=== PATIENT | female | born 1980 | race Caucasian/White ===

== ENCOUNTER → 2023-05-20 | Outpatient (CLI) | payer MEDICAID, SELFPAY ==
--- NOTE | 2023-05-20 10:10 | LES_PTH ---
PATIENT: ADIN NGUYEN LOC: [facility] U#:[id number] AGE/SX: 42/F ROOM: RE05/20/[address]: Dr. Kosta Domínguez MD : 1980 BED: DIS: 05/20/2023 SPEC #: [id number] RECD: 05/20/23 15:24 STATUS: TRISH REGaby #: [id number] OREN: 05/20/23 10:[address]: Kosta Domínguez DEPT: SURGICAL PATHOLOGY RECD BY: Joleen Guillen ENTERED: 05/21/23 08:29 SP TYPE: Lesion OTHR DR: Dr. Thanh Vázquez, [facility] Tissues: Skin of lip, NOS Procedures: Surgery Specimen Level IV Comments: @ Specimen number changed from [id number] to [id number] @ on 05/21/23 at 1032 by BLANCHE. @ Specimen number changed from [id number] to [id number] @ on 05/21/23 at 1032 by BLANCHE. HEADER OPERATION: Excision right lower lip lesion PRE-OP DIAGNOSIS: Benign neoplasm of lip TISSUE SUBMITTED: Lower lip lesion MICROSCOPIC DIAGNOSIS Lesion of lower lip, biopsy: Mucous cyst with associated reactive change Minor salivary gland ductal ectasia. AM:kim 05/22/2023 MICROSCOPIC DESCRIPTION Slides are reviewed. GROSS DESCRIPTION Received is one container labeled with the patient's name and not further designated. The specimen consists of two pieces of duran mucosal tissue measuring 0.5 x 0.5 x 0.3 cm and 0.3 x 0.2 x 0.1 cm. The entire specimen is submitted in one cassette. / SJ:rg 05/21/2023 TC:5 CPT: 80372
== END | disposition home or self-care (01) ==
LOC: LABSPEC 15:41
PROVIDERS: PCP Student in an Organized Health Care Education/Training Program; Referring Provider Otolaryngology; Visit Provider Otolaryngology
DX: D10.0 Benign neoplasm of lip (principal)
CPT/HCPCS: 88305

== ENCOUNTER 2023-09-10 19:25 | Emergency (ER) | payer MEDICAID, SELFPAY ==
[2023-09-10 19:26] VITALS: BP 129/96; PULSE 104; RESP 18; TEMP 36.4; O2SAT 98; BMI 33.6
--- NOTE | 2023-09-10 19:54 | EDS_ITS ---
HPI History of Present Illness Chief Complaint: Abd Pain [facility] Medical History (Updated 09/10/23 @ 19:35 by Amber Be) Kidney stone Home Medications bupropion HCl 150 mg tablet,12 hr sustained-release 150 mg PO DAILY 01/15/17 [History Last Taken Unknown] fluoxetine 40 mg capsule 40 mg PO BID 01/15/17 [History Last Taken Unknown] hydrochlorothiazide 12.5 mg capsule 12.5 mg PO DAILY 01/15/17 [History Last Taken Unknown] loratadine 10 mg tablet 10 mg PO DAILY 01/15/17 [History Last Taken Unknown] losartan 25 mg tablet 25 mg PO DAILY 01/15/17 [History Last Taken Unknown] meloxicam 15 mg tablet 15 mg PO DAILY 01/15/17 [History Last Taken Unknown] potassium citrate 10 mEq (1,080 mg) tablet,extended release 10 meq PO TID 01/15/17 [History Last Taken Unknown] Allergy/AdvReac Type Severity Reaction Status Date / Time No Known Allergies Allergy Verified 09/10/23 19:28 Social History Smoking Status: Never smoker EXAM Physical Exam Const Vital Signs: 09/10/23 19:26 Temperature 97.6 F L Temperature Source Temporal Pulse Rate 104 H Respiratory Rate 18 Blood Pressure 129/96 H Blood Pressure Mean 107 Pulse Ox 98 Oxygen Delivery Method Room Air MDM MDM MDM Narrative Medical decision making narrative: HISTORY OF PRESENT ILLNESS: 43-year-old female presents with lower quad abdominal pain that started last night. Goes to the groin. Notes started last night. Notes history of kidney stones. No history of UTIs. Does not feel similar to either. No trauma. No vaginal bleeding. No urinary complaints. No change in bowel habits REVIEW OF SYSTEMS: Pertinent positives: Abdominal pain Pertinent negatives: Vomiting, fever, chest pain, shortness of breath, frequency, urgency, dysuria, hematuria, vaginal bleeding, discharge PHYSICAL EXAM: Nursing triage notes reviewed, Vital signs reviewed Constitutional: please see mdm HENT: MMM Eyes: Pupils equal round and reactive to light, Extraocular muscles intact Neck: No stridor, no JVD, full neck ROM Lungs: Clear to auscultation, No wheezing or rales. No increased work of breat moises, no conversational dyspnea, no accessory muscle use, no nasal flaring. No respiratory distress noted Heart: Regular rate and rhythm, No murmurs, No rubs and No gallops, 2+ distal pulses (radial, femoral, posterior tibial) in all extremities Abdomen: Soft, mild left lower quadrant TTP but no rigidity, rebound or guarding, no obvious peritoneal signs, no palpable pulsatile abdominal masses, n o auscultated abdominal bruit : No CVAT Extremities: No edema Neuro: No focal neurological deficits, cranial nerves II through XII intact, 5/5 strength in all extremities. Intact sensation to light touch in all extremities, 2+ reflexes bilateral patella tendons. Normal gait. No ataxia. Skin: No rash or lesions noted MEDICAL DECISION MAKING: Chief Complaint: Lower quad abdominal pain External records reviewed: No recent advanced imaging of the abdomen or pelvis Factors affecting care: UTI, kidney stone Social determinants of health: none History obtained from others: none Consults: none [facility] Narrative: Patient was hemodynamically stable, afebrile, nontoxic-appearing. Exam with some mild left lower quadrant tenderness but no peritoneal signs. I considered the following differential diagnosis: AAA, small bowel obstruction, abdominal perforation, appendicitis, pancreatitis, hepatobiliary pathology (acute cholecystitis), mesenteric ischemia, pathology (ie nephrolithiasis, pyelonephritis). Give the patient IV Toradol and IV fluids for resuscitation I obtained a broad lab and imaging workup to further elucidate etiology patient complaint ALL IMAGES (IF OBTAINED) HAVE BEEN PERSONALLY REVIEWED AND INTERPRETED BY MYSELF. CBC with marked leukocytosis suggestive of systemic inflammation, mild anemia no thrombocytopenia BMP without evidence of significant electrolyte abnormalities, no anion gap, no acute kidney injury. Urinalysis shows no evidence of urinary inflammation suggestive of UTI Urine test is negative CT scan of the abdomen pelvis Shows no evidence of acute appendicitis, CT did show bilateral fluid density masses within the pelvis. This was further evaluated with a pelvic ultrasound. Pelvic ultrasound showed evidence of a complex cystic pelvic mass. While this is concerning it is not acutely life-threatening. Patient will need close outpatient RESPIRATORY COORDINATOR follow-up. This was arranged. Strict return precautions were discussed. The patient and/or family, caregivers express understanding. The patient and/or family, caregivers agrees with the plan. Shared decision making: I will have a discussion with the patient and or visitors regarding risk/benefits of further testing or admission. They will be made aware of of the risk/benefits inherent in this decision they will be given the opportunity to voice understanding. Total critical care time today provided was at least 0 [] minutes. This excludes separately billable procedures. Critical care time (if documented) is secondary to the patient having high probability of clinically significant/life threatening deterioration in the patient's condition which required my urgent intervention. Impression: 1. Abdominal pain 2. Leukocytosis 3. Pelvic mass Dispo: Discharge home This note was generated with [employer] dictation software. It may contain incorrect words, spelling, and punctuation that were not noted in review of the chart prior to signing. Lab Data Labs: Laboratory Results - last 24 hr 09/10/23 09/10/23 20:21 20:35 WBC 19.3 H RBC 4.58 Hgb 11.6 L Hct 37.7 MCV 82.3 MCH 25.3 L MCHC 30.8 L RDW Std Deviation 41.1 RDW Coeff of Pete 13.9 Plt Count 441 MPV 9.0 Immature Gran % (Auto) 0.500 Neut % (Auto) 80.7 H Lymph % (Auto) 9.3 L [place] % (Auto) 6.0 Eos % (Auto) 3.2 Baso % (Auto) 0.3 Absolute Neuts (auto) 15.6 H Absolute Lymphs (auto) 1.80 Nucleated RBC % 0 Sodium 138 Potassium 3.7 Chloride 105 Carbon Dioxide 25.0 Anion Gap 8 BUN 17 Creatinine 0.97 Estim Creat Clear Calc 76.46 Est GFR (MDRD) Af Amer 82 Est GFR (MDRD) Non-Af 68 BUN/Creatinine Ratio 17.6 Glucose 107 H Calcium 9.2 Urine Color Yellow Urine Clarity Clear Urine pH 6.5 Ur Specific [place] 1.015 Urine Protein Negative Urine Glucose (UA) Normal Urine Ketones Negative Urine Occult Blood 25 H Urine Nitrite Negative Urine Bilirubin Negative Urine Urobilinogen Normal Ur Leukocyte Esterase 100 H Urine RBC 0-5 SEEN Urine WBC 5-10 SEEN Ur Squamous Epith Cells 0-5 SEEN Urine Bacteria 1+ Urine Mucus 0 SEEN Urine Test Negative Radiography Diagnostic Testing: Clinical Impression(s) from Imaging Studies Abdomen/Pelvis CT 09/10/23 20:42 IMPRESSION: 1. Bilateral fluid density masses within the pelvis which may represent bilateral ovarian cysts. No other acute abnormalities are identified. 2. Cortical scarring in both kidneys. There is no ureteral stone or obstruction. Electronically Signed: Chirag Nolan MD at 21:05 EST , Transvaginal US 09/10/23 21:12 IMPRESSION: Multiple masses within the left ovary including a complex cyst, a solid mass and a cystic mass with an echogenic nodule. There is a septated cyst in the right ovary. There is no evidence of torsion. If indicated further evaluation with MRI may be beneficial. Electronically Signed: Chirag Nolan MD at 22:54 EST , Discharge Plan Triage Chief Complaint: Abd Pain ED Provider: Destin Serna Dx/Rx/DC Orders Prescriptions: No Action fluoxetine 40 MG capsule 40 mg PO BID Patient Comments: TAKE 1 CAPSULE TWICE DAILY bupropion HCl 150 MG tablet sustained-release 12 hr 150 mg PO DAILY meloxicam 15 MG tablet 15 mg PO DAILY Patient Comments: potassium citrate 10 MEQ tablet extended release 10 meq PO TID Patient Comments: TAKE 1 TABLET BY MOUTH THREE TIMES DAILY losartan 25 MG tablet 25 mg PO DAILY Patient Comments: Take 1 tablet by mouth once daily. hydrochlorothiazide 12.5 MG capsule 12.5 mg PO DAILY loratadine 10 MG tablet 10 mg PO DAILY Patient Comments: Primary Care Provider: Thanh Vázquez Referrals: Thanh Vázquez DO [Primary Care Provider] -
--- OUTSIDE RECORDS SUMMARY | 2023-09-10 20:03 | XMS RPT_ITS | CCD ---
Author Name Unknown Address [address] [place] [address] Organization [facility] Care Team Providers Care Cigarette Making Examiner Name Role Phone Thanh Corrales DO Primary Care Provider [phone] Thanh Corrales DO Unavailable [phone] THANH CORRALES Primary Care Unavailable SHARMIN BAUMAN Referring Unavailable THANH CORRALES Primary Care Unavailable SHARMIN BAUMAN Referring Unavailable THANH CORRALES Primary Care Unavailable SHARMIN BAUMAN Attending Unavailable THANH CORRALES Primary Care Unavailable THANH CORRALES Primary Care Unavailable YOHANA GALARZA Attending Unavailable THANH CORRALES Primary Care Unavailable Medications Current Medications Medication Drug Class(es) Dates Sig (Normalized) Sig (Original) nitrofurantoin, macrocrystals 25 mg / nitrofurantoin, monohydrate 75 mg oral capsule (2 sources) Nitrofuran Antibacterial Start: 05-29-2023 End: 06-03-2023 take 1 capsule by mouth twice daily nitrofurantoin monohydrate and macrocrystal (MACROBID) 100 mg capsule Indications: Recurrent UTI (urinary tract infection) Take 1 capsule by mouth two times a day for 5 days. 10 capsule 0 05/29/2023 06/03/2023 Active Completed/Discontinued Medications Medication Drug Class(es) Dates Sig (Normalized) Sig (Original) 24 hr buPROPion hydrochloride 300 mg extended release oral tablet (20 sources) Aminoketone Start: 03-07-2021 End: 10-16-2022 take 1 tablet by mouth once daily buPROPion XL (WELLBUTRIN XL) 300 mg 24 hr tablet Indications: Mood disorder (HCC) TAKE 1 TABLET BY MOUTH ONCE DAILY 90 tablet 11 07/18/2022 Active Problems Active Problems Problem Classification Problem Date Documented Da te Episodic/Chronic Diseases of mouth; excluding dental (2 sources) Mucocele of mouth; Translations: [Diseases of lips] 02-21-2023 Episodic Menopausal disorders (20 sources) Menopause finding; Translations: [Menopausal and female climacteric states] Onset: 01-08-2019 01-08-2019 Chronic Menstrual disorders (1 source) Menorrhagia; Translations: [Excessive and frequent menstruation with regular cycle] Chronic Mood disorders (20 sources) Mood disorder; Translations: [Unspecified mood [affective] disorder] Onset: 01-11-2014 Chronic Nutritional deficiencies (2 sources) Vitamin D deficiency; Translations: [Vitamin D deficiency, unspecified] Chronic Other and unspecified benign neoplasm (1 source) Dysplastic nevus of skin; Translations: [Melanocytic nevi of scalp and neck] Episodic Other and unspecified benign neoplasm (1 source) Melanocytic nevus of trunk; Translations: [Melanocytic nevi of trunk] Episodic Other inflammatory condition of skin (20 sources) Psoriasis; Translations: [Psoriasis, unspecified] Onset: 01-08-2019 01-08-2019 Chronic Other lower respiratory disease (1 source) Dyspnea; Translations: [Shortness of breath] Episodic Other screening for suspected conditions (not mental disorders or infectious disease) (2 sources) Patient encounter status; Translations: [Encounter for screening mammogram for malignant neoplasm of breast] Episodic Other skin disorders (1 source) Abnormal hair finding; Translations: [Other hair color and hair shaft abnormalities] Episodic Past or Other Problems Problem Classification Problem Date Documented Da te Episodic/Chronic Abdominal pain (2 sources) Left flank pain; Translations: [Unspecified abdominal pain] Onset: 03-12-2023 03-12-2023 Episodic Calculus of urinary tract (20 sources) Kidney stone; Translations: [Calculus of kidney] Onset: 04-22-2016 04-22-2016 Episodic Cardiac dysrhythmias (2 sources) Palpitations; Translations: [Palpitations] Onset: 10-08-2022 Episodic Deficiency and other anemia (20 sources) Iron deficiency anemia; Translations: [Iron deficiency anemia, unspecified] Onset: 01-11-2014 01-11-2014 Episodic Genitourinary symptoms and ill-defined conditions (2 sources) Increased frequency of urination; Translations: [Frequency of micturition] Onset: 03-12-2023 3 Episodic Malaise and fatigue (20 sources) Fatigue; Translations: [Other fatigue] Onset: 01-11-2014 01-11-2014 Episodic Nonspecific chest pain (2 sources) Chest discomfort; Translations: [Other chest pain] Onset: 10-08-2022 Episodic Other connective tissue disease (20 sources) Pain in right hand; Translations: [Pain in right hand] Onset: 01-08-2019 01-08-2019 Episodic Other lower respiratory disease (1 source) Shortness of breath; Translations: [Shortness of breath] Onset: 10-08-2022 Episodic Residual codes; unclassified (20 sources) Bilateral lower limb edema; Translations: [Localized edema] Onset: 02-27-2015 02-27-2015 Episodic Spondylosis; intervertebral disc disorders; other back problems (20 sources) Chronic low back pain; Translations: [Chronic bilateral low back pain without sciatica] Onset: 01-11-2014 Episodic Urinary tract infections (20 sources) Urinary tract infectious disease; Translations: [Urinary tract infection, site not specified] Onset: 03-18-2016 03-18-2016 Episodic Results Test Name Value Interpretation Reference Range Facil ity Vital Signs Date Time Vital Sign Value Performing Clinician Meraryi rosita 02-21-2023 15:05-0400 Body temperature 97.81 [degF] Reid Powell APRN.CNP Work Phone: [facility] 02-21-2023 15:05-0400 Body weight 83.01 kg Reid Powell APRN.CNP Work Phone: [facility] 02-21-2023 15:05-0400 Diastolic blood pressure 72 mm[Hg] Reid Powell APRN.CNP Work Phone: [facility] 02-21-2023 15:05-0400 Heart rate 88 /min Reid Powell APRN.CNP Work Phone: [facility] 02-21-2023 15:05-0400 Respiratory rate 16 /min Reid Powell APRN.CNP Work Phone: [facility] 02-21-2023 15:05-0400 SaO2% (BldA) [Mass fraction] 96 % Reid Andre LAMINATION BUILDER.PLATER HELPER Work Phone: [facility] 02-21-2023 15:05-0400 Systolic blood pressure 122 mm[Hg] Reid Powell LAMINATION BUILDER.PLATER HELPER Work Phone: [facility] 10-03-2022 14:27-0500 Body weight 82.64 kg Sharmin Bauman LAMINATION BUILDER.PLATER HELPER Work Phone: [facility] 10-03-2022 14:27-0500 Diastolic blood pressure 86 mm[Hg] Sharmin Bauman LAMINATION BUILDER.PLATER HELPER Work Phone: [facility] 10-03-2022 14:27-0500 Heart rate 92 /min Sharmin Bauman LAMINATION BUILDER.PLATER HELPER Work Phone: [facility] 10-03-2022 14:27-0500 Respiratory rate 16 /min Sharmin Bauman LAMINATION BUILDER.PLATER HELPER Work Phone: [facility] 10-03-2022 14:27-0500 SaO2% (BldA) [Mass fraction] 96 % Sharmin Bauman LAMINATION BUILDER.PLATER HELPER Work Phone: [facility] 10-03-2022 14:27-0500 Systolic blood pressure 122 mm[Hg] Sharmin Bauman LAMINATION BUILDER.PLATER HELPER Work Phone: [facility] 08-06-2022 14:31-0500 Body temperature 98.6 [degF] Thanh Corrales DO Work Phone: [facility] 08-06-2022 14:31-0500 Body weight 79.83 kg Thanh Corrales DO Work Phone: [facility] 08-06-2022 14:31-0500 Diastolic blood pressure 60 mm[Hg] Thanh Corrales DO Work Phone: [facility] 08-06-2022 14:31-0500 Heart rate 76 /min Thanh Corrales DO Work Phone: [facility] 08-06-2022 14:31-0500 Respiratory rate 16 /min Thanh Corrales DO Work Phone: [facility] 08-06-2022 14:31-0500 Systolic blood pressure 110 mm[Hg] Thanh Corrales DO Work Phone: [facility] 06-19-2022 13:26-0500 Body weight 82.37 kg Sharmin Seatiesha LAMINATION BUILDER.PLATER HELPER Work Phone: [facility] 06-19-2022 13:26-0500 Diastolic blood pressure 76 mm[Hg] Sharmin Zurtiesha LAMINATION BUILDER.PLATER HELPER Work Phone: [facility] 06-19-2022 13:26-0500 Heart rate 64 /min Sharmin Zurawick LAMINATION BUILDER.PLATER HELPER Work Phone: [facility] 06-19-2022 13:26-0500 Respiratory rate 18 /min Sharmin Seatiesha LAMINATION BUILDER.PLATER HELPER Work Phone: [facility] 06-19-2022 13:26-0500 Systolic blood pressure 120 mm[Hg] Sharmin Zurawick LAMINATION BUILDER.PLATER HELPER Work Phone: [facility] Encounters Encounter Date Encounter Type Care Provider Facility Start: 09-03-2023 ambulatory Thanh villar DO Work Phone: [facility] Start: 07-14-2023 Refill Sharmin Bauman LAMINATION BUILDER.PLATER HELPER Work Phone: [facility] Procedures Date Procedure Procedure Detail Performing Clinician Start: 03-12-2023 Urnls dip stick/tabl et rgnt auto w/o microscopy Yohana Galarza LAMINATION BUILDER.PLATER HELPER Work Phone: Plan of Treatment Date Care Activity Detail Author Start: 12-11-2023 Urine microalbumin profile [facility] Start: 10-04-2023 COVID-19 VACCINE (4 - Booster for Pfizer series) COVID-19 VACCINE (4 - Booster for Pfizer series) [facility] Immunizations Immunization Date Immunization Notes Care Provider Andrey [place] 07-10-2018 influenza virus vaccine, unspecified formulation Figueroa Weber MD Work Phone: [facility] 12-10-2013 tetanus toxoid, redu enrique diphtheria toxoid, and acellular pertussis vaccine, adsorbed Yohana Galarza LAMINATION BUILDER.PLATER HELPER Work Phone: [facility] Work Phone: Payers Date Payer Category Payer Medicaid [id number] 2013 Medicaid [employer] [id number] 2013-Present [phone] [address] [place] [address] Medicaid [id number] 2013 Medicaid [id number] Social History Date Type Detail Facility Tobacco smoking stat [facility] Never smoked tobacco [facility] Start: 05-21-2021 End: 05-29-2023 Alcohol intake Current drinker of alcohol (finding) [facility] Start: 04-02-2016 History SDOH Alcohol Comment rarely [facility] Start: 1980 Sex Assigned At Not on file [facility] Start: 06-09-2022 End: 06-19-2022 Exposure to SARS-CoV-2 (event) Not sure [facility] Start: 1980 Sex Assigned At Female [facility] Start: 02-14-2023 End: 02-21-2023 History of Social function [facility] Start: 02-14-2023 End: 02-21-2023 Tobacco use panel [facility] Adult Depression Screening Assessment 0 [facility] Start: 10-07-2022 Gender identity Identifies as female gender (finding) [facility] Start: 10-07-2022 Sexual orientation Heterosexual (deepthi queen) [facility] Medical Equipment Procedure Code Equipment Code Equipment Origin al Text Equipment Identifier Dates Stent Inlay Opti ma 7fr Taper [place] Green Polymer Phreecoat 24cm [facility] - [id number] Start: 04-11-2016 Clinical Notes 02-08-2022 to 09-03-2023 Telephone Encounter - Darlyn Whitney LPN - 07/15/2023 11:08 AM ESTTelephone Encounter - Nighat Hernandez LPN - 06/10/2023 12:24 PM Yohana Benz LAMINATION BUILDER.PLATER HELPER - 03/12/2023 7:16 PM EDT Note Date & Type Note Facility 09-03-2023 Note Patient Outreach (IN [facility]) ALEX OBREGON ([id number]) 1980 F Date Time Provider Department 09/03/23 THANH CORRALES During your visit today, we recorded the following information about you: Allergies As of Date: 09/03/2023 (No Known Allergies) Date Reviewed: 05/29/2023 Reviewed by: Inés Ashraf LPN - Fully Assessed Visit Diagnosis:Encounter for screening mammogram for breast cancer [Z12.31] Order(s):[facility] SCREENING [[id number]] Order #: [id number] FUTURE Prescriptions as of 09/08/2023 - Cholecalciferol, Vitamin D3, 125 mcg (5,000 unit) cap take 1 capsule by mouth once daily. - FLUoxetine (PROZAC) 40 mg capsule Take 1 capsule by mouth twice daily. - spironolactone (ALDACTONE) 50 mg tablet Take 1 tablet by mouth once daily. - busPIRone (BUSPAR) 5 mg tablet Take 1 tablet by mouth two times a day as needed (anxiety, picking disorder). - meloxicam (MOBIC) 15 mg tablet Take 1 tablet by mouth once daily. With food. - loratadine (CLARITIN) 10 mg tablet take 1 tablet by mouth once daily. - buPROPion XL (WELLBUTRIN XL) 300 mg 24 hr tablet TAKE 1 TABLET BY MOUTH ONCE DAILY - furosemide (LASIX) 20 mg tablet Take 1 tablet by mouth once daily. As needed for leg swelling - fluticasone (FLONASE) 50 mcg/actuation nasal spray Use 2 Sprays in each nostril once daily. Rinse mouth after use. - ferrous sulfate 325 mg (65 mg iron) tablet Take 1 tablet by mouth twice daily with meals. - COMPRESSION HOSIERY KNEE LENGTH, AD, 18-30 MMHG as needed (leg swelling). Dx: varicose veins with edema - omega-3 acid ethyl esters (LOVAZA) 1 gram capsule TAKE 4 CAPSULES EVERY DAY Facility-Administered Medications as of 09/08/2023 - perflutren lipid microspheres 1.3 mL in NaCl (PF) 0.9% 10 mL injection (DEFINITY) - sodium chloride 0.9 % (flush) 10 mL (BD POSIFLUSH) Problem List As Of Date 09/03/2023 Noted Resolved Iron deficiency anemia [D50.9] 01/11/2014 Fatigue [R53.83] 01/11/2014 Chronic low back pain [M54.50, G89.29] 01/11/2014 Mood disorder (HCC) [F39] 01/11/2014 Bilateral edema of lower extremity [R60.0] 02/27/2015 Recurrent major depression in partial remission*02/27/2015 Urinary tract infection [N39.0] 03/18/2016 Nephrolithiasis [N20.0] 04/22/2016 Chronic midline low back pain without sciatica *09/17/2017 Routine physical examination [Z00.00] 01/08/2019 Perimenopausal symptoms [N95.1] 01/08/2019 Right hand pain [M79.641] 01/08/2019 Psoriasis [L40.9] 01/08/2019 Encounter Status:Closed by ASHLEY ORTEGA on 09/08/23 [facility] 07-15-2023 Miscellaneous Notes Patient has been identified by name and date of : Yes, Patient phones for refill(s): Requested Prescriptions Pending Prescriptions Disp Refills Cholecalciferol, Vitamin D3, 125 mcg (5,000 unit) cap [Pharmacy Med Name: cholecalciferol (vitamin D3) 125 mcg (5,000 unit) capsule] 90 capsule 3 Sig: take 1 capsule by mouth once daily. FLUoxetine (PROZAC) 40 mg capsule [Pharmacy Med Name: fluoxetine 40 mg capsule] 180 capsule 3 Sig: Take 1 capsule by mouth twice daily. Date of last office visit in primary care: 03/12/2023 Date of next office visit in primary care: Visit date not found Please advise. Thank you. Darlyn Whitney LPN. documented in this encounter [facility] 06-10-2023 Miscellaneous Notes Patient has been identified by name and date of : Patient phones for refill(s): Requested Prescriptions Pending Prescriptions Disp Refills meloxicam (MOBIC) 15 mg tablet [Pharmacy Med Name: meloxicam 15 mg tablet] 90 tablet 3 Sig: Take 1 tablet by mouth once daily. With food. loratadine (CLARITIN) 10 mg tablet [Pharmacy Med Name: loratadine 10 mg tablet] 90 tablet 3 Sig: take 1 tablet by mouth once daily. Date of last office visit in primary care: 03/12/2023 Date of next office visit in primary care: Visit date not found Last 2 Encounter Wt Readings: Date: Wt: 05/29/2023 84.3 kg (185 lb 12.8 oz) 02/21/2023 83 kg (183 lb) Previous labs/tests for medication: Not applicable Please advise. Thank you. Nighat Hernandez LPN. documented in this encounter [facility] 05-31-2023 Miscellaneous Notes Patient notified and verbalized understanding of instructions given.Inés Ashraf LPN Urine culture did not show a clear infection. Finish antibiotic if helping and schedule follow up with PCP, urology, or SHIFT MECHANIC for blood in the urine. documented in this encounter [facility] 05-29-2023 Note HNO ID: [id number] Author: Callie Spann APRN.PLATER HELPER Service: ? Author Type: Nurse Practitioner Type: Progress Notes Filed: 05/29/2023 7:16 PM Note Text: CC: Patient presents with: Fever: Fever and chills x 2 days-these are her usual symptoms for UTI's HPI Alex Obregon is a 42 year old female who presents with complaint of possible UTI. These symptoms have been present for 2 days. Associated symptoms: fever and chills Denies: backpain, hematuria, abdominal pain, flank pain, and vaginal redness Treatments: nothing The ROS was otherwise negative. PMH, Medications, labs, allergies, and recent past visits with PCP were reviewed and updated as able. PHYSICAL EXAM: BP 148/88 Pulse 92 Temp 37.8 ?C (100 ?F) (Tympanic) Resp 16 Wt 84.3 kg (185 lb 12.8 oz) LMP 04/09/2021 (Approximate) SpO2 98% BMI 33.98 kg/m? General: Well appearing and alert CV: Regular rate and rhythm without obvious murmur Lungs: clear to auscultation bilaterally Back: straight and symmetric Abdomen: soft, nontender, nondistended PAST MEDICAL HISTORY Diagnosis Date ADD (attention deficit disorder) diagnosed as child Elevated LDL cholesterol level 01/2014 Esophageal atresia congenital, fixed at Iron deficiency anemia after heavy menses Mood disorder (HCC) Nephrolithiasis Preeclampsia 1st , not with 2nd Umbilical hernia 2012 surgical fixed Vitamin D deficiency 01/2014 PAST SURGICAL HISTORY Procedure Laterality Date APPENDECTOMY 1982 G - TUBE, LOW PROFILE 1982 due to esophageal atresia REPAIR UMBILICAL HERNIA 2012 SCOPE ESPHGL ATRESIA RPR WDIV FISTULA 1982 TUBAL LIGATION, ALLERGIES Patient has no known allergies. MEDICATIONS busPIRone (BUSPAR) 5 mg tabletTake 1 tablet by mouth twice daily as needed (anxiety, picking disorder).Disp: 60 tabletRfl: 3 spironolactone (ALDACTONE) 50 mg tabletTake 1 tablet by mouth once daily.Disp: 30 tabletRfl: 3 buPROPion XL (WELLBUTRIN XL) 300 mg 24 hr tabletTAKE 1 TABLET BY MOUTH ONCE DAILYDisp: 90 tabletRfl: 11 meloxicam (MOBIC) 15 mg tabletTake 1 tablet by mouth once daily. With food.Disp: 90 tabletRfl: 3 furosemide (LASIX) 20 mg tabletTake 1 tablet by mouth once daily. As needed for leg swellingDisp: 30 tabletRfl: 5 FLUoxetine (PROZAC) 40 mg capsuleTake 1 capsule by mouth twice daily.Disp: 180 capsuleRfl: 3 Cholecalciferol, Vitamin D3, 125 mcg (5,000 unit) capTake 1 capsule by mouth once daily.Disp: 90 capsuleRfl: 3 fluticasone (FLONASE) 50 mcg/actuation nasal sprayUse 2 Sprays in each nostril once daily. Rinse mouth after use.Disp: 3 EachRfl: 1 loratadine (CLARITIN) 10 mg tabletTake 1 tablet by mouth once daily.Disp: 90 tabletRfl: 3 ferrous sulfate 325 mg (65 mg iron) tabletTake 1 tablet by mouth twice daily with meals.Disp: 60 tabletRfl: 5 COMPRESSION HOSIERY KNEE LENGTH, AD, 18-30 MMHGas needed (leg swelling). Dx: varicose veins with edemaDisp: 2 EachRfl: 1 omega-3 acid ethyl esters (LOVAZA) 1 gram capsuleTAKE 4 CAPSULES EVERY DAYDisp: 120 capsuleRfl: 5 nitrofurantoin monohydrate and macrocrystal (MACROBID) 100 mg capsuleTake 1 capsule by mouth two times a day for 5 days.Disp: 10 capsuleRfl: 0 FAMILY HISTORY Problem Relation Age of Onset other (non hodgkins lymphoma [Other]) Mother 58 Social History Tobacco Use Smoking status: Never Smokeless tobacco: Never Substance Use Topics Alcohol use: Yes Comment: rarely Drug use: No ASSESSMENT/PLAN: 1. Fever, unspecified fever cause - ICD9: 780.60, ICD10: R50.9 (primary diagnosis) - UA DIP, URINE (POC) - URINE CULTURE 2. Recurrent UTI (urinary tract infection) - ICD9: 599.0, ICD10: N39.0 - NITROFURANTOIN MONOHYDRATE AND MACROCRYSTAL 100 MG ORAL CAP Prescription instructions reviewed with patient as applicable. Potential red flag symptoms discussed with the patient. Reviewed appropriate action plan to take if red flag symptoms occur. Patient agreeable to treatment plan. Callie Spann APRN.[facility] 04-03-2023 Miscellaneous Notes Pt notified via mychart that referral is in if she still needs this. If she wasn't to go to [facility] to let office know so we can fax referral over. Ngozi Turner Ma Left message for patient to return call Shivani Ivy Please let patient know that I have ordered a consult to ENT. These often resolve on their own. If patient still wants to be seen, please fax referral to [facility] as requested. 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 Please advise documented in this encounter [facility] 03-12-2023 Note HNO ID: [id number] Author: Yohana Galarza APRN.PLATER HELPER Service: ? Author Type: Nurse Practitioner Type: Progress Notes Filed: 03/12/2023 7:30 PM Note Text: Chief Complaint Patient presents with: urinary symptoms HPI Alex Obregon is a 42 year old female who presents here today for Above Complaints. Today: Feels like she has a kidney infection. Has intermittently had a fever and left kidney/flank pain. Has been resting and pushing water. C/o frequency and burning. Some low back cramping. Past medical history, appointments, medications, allergies reviewed. Previous Medical History PAST MEDICAL HISTORY Diagnosis Date ADD (attention deficit disorder) diagnosed as child Elevated LDL cholesterol level 01/2014 Esophageal atresia congenital, fixed at Iron deficiency anemia after heavy menses Mood disorder (HCC) Nephrolithiasis Preeclampsia 1st , not with 2nd Umbilical hernia 2012 surgical fixed Vitamin D deficiency 01/2014 Previous Surgical History PAST SURGICAL HISTORY Procedure Laterality Date APPENDECTOMY 1982 G - TUBE, LOW PROFILE 1982 due to esophageal atresia REPAIR UMBILICAL HERNIA 2012 SCOPE ESPHGL ATRESIA RPR WDIV FISTULA 1982 TUBAL LIGATION, Family History FAMILY HISTORY Problem Relation Age of Onset other (non hodgkins lymphoma [Other]) Mother 58 Patient Allergies ALLERGIES No Known Allergies Current Medications Current Outpatient Medications on File Prior to Visit Medication Sig nitrofurantoin monohydrate and macrocrystal (MACROBID) 100 mg capsule Take 1 capsule by mouth twice daily with meals for 7 days. busPIRone (BUSPAR) 5 mg tablet Take 1 tablet by mouth twice daily as needed (anxiety, picking disorder). spironolactone (ALDACTONE) 50 mg tablet Take 1 tablet by mouth once daily. (Patient not taking: Reported on 02/21/2023) buPROPion XL (WELLBUTRIN XL) 300 mg 24 hr tablet TAKE 1 TABLET BY MOUTH ONCE DAILY meloxicam (MOBIC) 15 mg tablet Take 1 tablet by mouth once daily. With food. furosemide (LASIX) 20 mg tablet Take 1 tablet by mouth once daily. As needed for leg swelling FLUoxetine (PROZAC) 40 mg capsule Take 1 capsule by mouth twice daily. Cholecalciferol, Vitamin D3, 125 mcg (5,000 unit) cap Take 1 capsule by mouth once daily. fluticasone (FLONASE) 50 mcg/actuation nasal spray Use 2 Sprays in each nostril once daily. Rinse mouth after use. loratadine (CLARITIN) 10 mg tablet Take 1 tablet by mouth once daily. ferrous sulfate 325 mg (65 mg iron) tablet Take 1 tablet by mouth twice daily with meals. COMPRESSION HOSIERY KNEE LENGTH, AD, 18-30 MMHG as needed (leg swelling). Dx: varicose veins with edema omega-3 acid ethyl esters (LOVAZA) 1 gram capsule TAKE 4 CAPSULES EVERY DAY (Patient not taking: Reported on 02/21/2023) Current Facility-Administered Medications on File Prior to Visit Medication perflutren lipid microspheres 1.3 mL in NaCl (PF) 0.9% 10 mL injection (DEFINITY) sodium chloride 0.9 % (flush) 10 mL (BD POSIFLUSH) Social History Social History Tobacco Use Smoking status: Never Smokeless tobacco: Never Substance Use Topics Alcohol use: Yes Comment: rarely Drug use: No Review of Symptoms REVIEW OF SYSTEMS See HPI, otherwise negative EXAM: LMP 04/09/2021 (Approximate) General Appearance: Well appearing, alert, in no acute distress, well-hydrated, well nourished. and Obese. Lungs: Lungs clear to auscultation. No wheezing, rhonchi, rales.. Heart: RRR without murmur, gallop, or rubs. No ectopy. Abdomen: positive left CVA tenderness. Health Maintenance List HEPATITIS B(1 of 3 - 3-dose series) Never done HEPATITIS C SCREENING Never done HIV SCREENING Never done HPV TESTING Never done PAP TESTING due on 02/08/2018 MAMMOGRAM Never done COVID-19 VACCINE(4 - Pfizer series) due on 10/04/2023 INFLUENZA(1) due on 03/28/2023 DTAP,TDAP,TD(2 - Td or Tdap) due on 12/11/2023 HPV VACCINE Aged Out Data reviewed Previous records, office notes ASSESSMENT/PLAN: 1. Acute cystitis with hematuria - ICD9: 595.0, ICD10: N30.01 (primary diagnosis) UA-large blood, positive nitrites, trace leukocytes. Urine sent for culture. Macrobid sent. Continue pushing water/fluids. 2. Acute left flank pain - ICD9: 789.09, 338.19, ICD10: R10.9 UA-large blood, positive nitrites, trace leukocytes. Urine sent for culture. Macrobid sent. Continue pushing water/fluids. 3. Frequent urination - ICD9: 788.41, ICD10: R35.0 UA-large blood, positive nitrites, trace leukocytes. Urine sent for culture. Macrobid sent. Continue pushing water/fluids. Yohana Galarza APRN.[facility] 03-12-2023 History of Presen t illness Narrative Chief Complaint Patient presents with: urinary symptoms HPI Alex Obregon is a 42 year old female who presents here today for Above Complaints. Today: Feels like she has a kidney infection. Has intermittently had a fever and left kidney/flank pain. Has been resting and pushing water. C/o frequency and burning. Some low back cramping. Past medical history, appointments, medications, allergies reviewed. Previous Medical History PAST MEDICAL HISTORY Diagnosis Date ADD (attention deficit disorder) diagnosed as child Elevated LDL cholesterol level 01/2014 Esophageal atresia congenital, fixed at Iron deficiency anemia after heavy menses Mood disorder (HCC) Nephrolithiasis Preeclampsia 1st , not with 2nd Umbilical hernia 2012 surgical fixed Vitamin D deficiency 01/2014 Previous Surgical History PAST SURGICAL HISTORY Procedure Laterality Date APPENDECTOMY 1982 G - TUBE, LOW PROFILE 1982 due to esophageal atresia REPAIR UMBILICAL HERNIA 2012 SCOPE ESPHGL ATRESIA RPR WDIV FISTULA 1983 TUBAL LIGATION, Family History FAMILY HISTORY Problem Relation Age of Onset other (non hodgkins lymphoma [Other]) Mother 58 Patient Allergies ALLERGIES No Known Allergies Current Medications Current Outpatient Medications on File Prior to Visit Medication Sig nitrofurantoin monohydrate and macrocrystal (MACROBID) 100 mg capsule Take 1 capsule by mouth twice daily with meals for 7 days. busPIRone (BUSPAR) 5 mg tablet Take 1 tablet by mouth twice daily as needed (anxiety, picking disorder). spironolactone (ALDACTONE) 50 mg tablet Take 1 tablet by mouth once daily. (Patient not taking: Reported on 02/21/2023) buPROPion XL (WELLBUTRIN XL) 300 mg 24 hr tablet TAKE 1 TABLET BY MOUTH ONCE DAILY meloxicam (MOBIC) 15 mg tablet Take 1 tablet by mouth once daily. With food. furosemide (LASIX) 20 mg tablet Take 1 tablet by mouth once daily. As needed for leg swelling FLUoxetine (PROZAC) 40 mg capsule Take 1 capsule by mouth twice daily. Cholecalciferol, Vitamin D3, 125 mcg (5,000 unit) cap Take 1 capsule by mouth once daily. fluticasone (FLONASE) 50 mcg/actuation nasal spray Use 2 Sprays in each nostril once daily. Rinse mouth after use. loratadine (CLARITIN) 10 mg tablet Take 1 tablet by mouth once daily. ferrous sulfate 325 mg (65 mg iron) tablet Take 1 tablet by mouth twice daily with meals. COMPRESSION HOSIERY KNEE LENGTH, AD, 18-30 MMHG as needed (leg swelling). Dx: varicose veins with edema omega-3 acid ethyl esters (LOVAZA) 1 gram capsule TAKE 4 CAPSULES EVERY DAY (Patient not taking: Reported on 02/21/2023) Current Facility-Administered Medications on File Prior to Visit Medication perflutren lipid microspheres 1.3 mL in NaCl (PF) 0.9% 10 mL injection (DEFINITY) sodium chloride 0.9 % (flush) 10 mL (BD POSIFLUSH) Social History Social History Tobacco Use Smoking status: Never Smokeless tobacco: Never Substance Use Topics Alcohol use: Yes Comment: rarely Drug use: No Review of Symptoms REVIEW OF SYSTEMS See HPI, otherwise negative EXAM: LMP 04/09/2021 (Approximate) General Appearance: Well appearing, alert, in no acute distress, well-hydrated, well nourished. and Obese. Lungs: Lungs clear to auscultation. No wheezing, rhonchi, rales.. Heart: RRR without murmur, gallop, or rubs. No ectopy. Abdomen: positive left CVA tenderness. Health Maintenance List HEPATITIS B(1 of 3 - 3-dose series) Never done HEPATITIS C SCREENING Never done HIV SCREENING Never done HPV TESTING Never done PAP TESTING due on 02/08/2018 MAMMOGRAM Never done COVID-19 VACCINE(4 - Pfizer series) due on 10/04/2023 INFLUENZA(1) due on 03/28/2023 DTAP,TDAP,TD(2 - Td or Tdap) due on 12/11/2023 HPV VACCINE Aged Out Data reviewed Previous records, office notes ASSESSMENT/PLAN: 1. Acute cystitis with hematuria - ICD9: 595.0, ICD10: N30.01 (primary diagnosis) UA-large blood, positive nitrites, trace leukocytes. Urine sent for culture. Macrobid sent. Continue pushing water/fluids. 2. Acute left flank pain - ICD9: 789.09, 338.19, ICD10: R10.9 UA-large blood, positive nitrites, trace leukocytes. Urine sent for culture. Macrobid sent. Continue pushing water/fluids. 3. Frequent urination - ICD9: 788.41, ICD10: R35.0 UA-large blood, positive nitrites, trace leukocytes. Urine sent for culture. Macrobid sent. Continue pushing water/fluids. Yohana Galarza APRN.PLATER HELPER documented in this encounter [facility] 02-21-2023 Note HNO ID: [id number] Author: Reid Powell APRN.ERICA Service: ? Author Type: Nurse Practitioner Type: Progress Notes Filed: 02/21/2023 3:38 PM Note Text: Subjective HPI HPI Alex Obregon is a 42 year old female who presents today for CC of tender bump on inside of lip. This started few months ago. Has tried popping it. Symptoms are worsened by touching it. Denies injury and tooth pain. .Patient presents with: Mouth/Lip Problem: bump on inside of lip x couple months PAST MEDICAL HISTORY Diagnosis Date ADD (attention deficit disorder) diagnosed as child Elevated LDL cholesterol level 01/2014 Esophageal atresia congenital, fixed at Iron deficiency anemia after heavy menses Mood disorder (HCC) Nephrolithiasis Preeclampsia 1st , not with 2nd Umbilical hernia 2012 surgical fixed Vitamin D deficiency 01/2014 PAST SURGICAL HISTORY Procedure Laterality Date APPENDECTOMY 1982 G - TUBE, LOW PROFILE 1982 due to esophageal atresia REPAIR UMBILICAL HERNIA 2012 SCOPE ESPHGL ATRESIA RPR WDIV FISTULA 1982 TUBAL LIGATION, ALLERGIES Patient has no known allergies. MEDICATIONS busPIRone (BUSPAR) 5 mg tabletTake 1 tablet by mouth twice daily as needed (anxiety, picking disorder).Disp: 60 tabletRfl: 3 buPROPion XL (WELLBUTRIN XL) 300 mg 24 hr tabletTAKE 1 TABLET BY MOUTH ONCE DAILYDisp: 90 tabletRfl: 11 meloxicam (MOBIC) 15 mg tabletTake 1 tablet by mouth once daily. With food.Disp: 90 tabletRfl: 3 furosemide (LASIX) 20 mg tabletTake 1 tablet by mouth once daily. As needed for leg swellingDisp: 30 tabletRfl: 5 FLUoxetine (PROZAC) 40 mg capsuleTake 1 capsule by mouth twice daily.Disp: 180 capsuleRfl: 3 Cholecalciferol, Vitamin D3, 125 mcg (5,000 unit) capTake 1 capsule by mouth once daily.Disp: 90 capsuleRfl: 3 fluticasone (FLONASE) 50 mcg/actuation nasal sprayUse 2 Sprays in each nostril once daily. Rinse mouth after use.Disp: 3 EachRfl: 1 loratadine (CLARITIN) 10 mg tabletTake 1 tablet by mouth once daily.Disp: 90 tabletRfl: 3 ferrous sulfate 325 mg (65 mg iron) tabletTake 1 tablet by mouth twice daily with meals.Disp: 60 tabletRfl: 5 COMPRESSION HOSIERY KNEE LENGTH, AD, 18-30 MMHGas needed (leg swelling). Dx: varicose veins with edemaDisp: 2 EachRfl: 1 spironolactone (ALDACTONE) 50 mg tabletTake 1 tablet by mouth once daily.Disp: 30 tabletRfl: 3 (Patient not taking: Reported on 02/21/2023) omega-3 acid ethyl esters (LOVAZA) 1 gram capsuleTAKE 4 CAPSULES EVERY DAYDisp: 120 capsuleRfl: 5 (Patient not taking: Reported on 02/21/2023) FAMILY HISTORY Problem Relation Age of Onset other (non hodgkins lymphoma [Other]) Mother 58 Social History Tobacco Use Smoking status: Never Smokeless tobacco: Never Substance Use Topics Alcohol use: Yes Comment: rarely Drug use: No ROS Objective Blood pressure 122/72, pulse 88, temperature 36.6 ?C (97.8 ?F), resp. rate 16, weight 83 kg (183 lb), last menstrual period 04/09/2021, SpO2 96 %. Physical Exam Constitutional: General: She is not in acute distress. Appearance: She is not toxic-appearing or diaphoretic. HENT: Head: Normocephalic and atraumatic. Nose: Nose normal. Mouth/Throat: Lips: [place]. Mouth: Mucous membranes are moist. Pharynx: Oropharynx is clear. Uvula midline. Pulmonary: Effort: Pulmonary effort is normal. No accessory muscle usage or respiratory distress. Neurological: Mental Status: She is alert and oriented to person, place, and time. ASSESSMENT/PLAN: 1. Mucocele of lip - ICD9: 528.5, ICD10: K13.0 Advised no treatment necessary, usually resolve on own. Can notify dentist if needed. Reid Powell APRN.[facility] 02-21-2023 History of Presen t illness Narrative Images from the original note were not included. Subjective HPI HPI Alex Obregon is a 42 year old female who presents today for CC of tender bump on inside of lip. This started few months ago. Has tried popping it. Symptoms are worsened by touching it. Denies injury and tooth pain. .Patient presents with: Mouth/Lip Problem: bump on inside of lip x couple months PAST MEDICAL HISTORY Diagnosis Date ADD (attention deficit disorder) diagnosed as child Elevated LDL cholesterol level 01/2014 Esophageal atresia congenital, fixed at Iron deficiency anemia after heavy menses Mood disorder (HCC) Nephrolithiasis Preeclampsia 1st , not with 2nd Umbilical hernia 2012 surgical fixed Vitamin D deficiency 01/2014 PAST SURGICAL HISTORY Procedure Laterality Date APPENDECTOMY 1982 G - TUBE, LOW PROFILE 1982 due to esophageal atresia REPAIR UMBILICAL HERNIA 2012 SCOPE ESPHGL ATRESIA RPR WDIV FISTULA 1982 TUBAL LIGATION, ALLERGIES Patient has no known allergies. MEDICATIONS busPIRone (BUSPAR) 5 mg tablet^Take 1 tablet by mouth twice daily as needed (anxiety, picking disorder).^Disp: 60 tablet^Rfl: 3 buPROPion XL (WELLBUTRIN XL) 300 mg 24 hr tablet^TAKE 1 TABLET BY MOUTH ONCE DAILY^Disp: 90 tablet^Rfl: 11 meloxicam (MOBIC) 15 mg tablet^Take 1 tablet by mouth once daily. With food.^Disp: 90 tablet^Rfl: 3 furosemide (LASIX) 20 mg tablet^Take 1 tablet by mouth once daily. As needed for leg swelling^Disp: 30 tablet^Rfl: 5 FLUoxetine (PROZAC) 40 mg capsule^Take 1 capsule by mouth twice daily.^Disp: 180 capsule^Rfl: 3 Cholecalciferol, Vitamin D3, 125 mcg (5,000 unit) cap^Take 1 capsule by mouth once daily.^Disp: 90 capsule^Rfl: 3 fluticasone (FLONASE) 50 mcg/actuation nasal spray^Use 2 Sprays in each nostril once daily. Rinse mouth after use.^Disp: 3 Each^Rfl: 1 loratadine (CLARITIN) 10 mg tablet^Take 1 tablet by mouth once daily.^Disp: 90 tablet^Rfl: 3 ferrous sulfate 325 mg (65 mg iron) tablet^Take 1 tablet by mouth twice daily with meals.^Disp: 60 tablet^Rfl: 5 COMPRESSION HOSIERY KNEE LENGTH, AD, 18-30 MMHG^as needed (leg swelling). Dx: varicose veins with edema^Disp: 2 Each^Rfl: 1 spironolactone (ALDACTONE) 50 mg tablet^Take 1 tablet by mouth once daily.^Disp: 30 tablet^Rfl: 3 (Patient not taking: Reported on 02/21/2023) omega-3 acid ethyl esters (LOVAZA) 1 gram capsule^TAKE 4 CAPSULES EVERY DAY^Disp: 120 capsule^Rfl: 5 (Patient not taking: Reported on 02/21/2023) FAMILY HISTORY Problem Relation Age of Onset other (non hodgkins lymphoma [Other]) Mother 58 Social History Tobacco Use Smoking status: Never Smokeless tobacco: Never Substance Use Topics Alcohol use: Yes Comment: rarely Drug use: No ROS Objective Blood pressure 122/72, pulse 88, temperature 36.6 C (97.8 F), resp. rate 16, weight 83 kg (183 lb), last menstrual period 04/09/2021, SpO2 96 %. Physical Exam Constitutional: General: She is not in acute distress. Appearance: She is not toxic-appearing or diaphoretic. HENT: Head: Normocephalic and atraumatic. Nose: Nose normal. Mouth/Throat: Lips: [place]. Mouth: Mucous membranes are moist. Pharynx: Oropharynx is clear. Uvula midline. Pulmonary: Effort: Pulmonary effort is normal. No accessory muscle usage or respiratory distress. Neurological: Mental Status: She is alert and oriented to person, place, and time. ASSESSMENT/PLAN: 1. Mucocele of lip - ICD9: 528.5, ICD10: K13.0 Advised no treatment necessary, usually resolve on own. Can notify dentist if needed. Reid Powell APRN.PLATER HELPER documented in this encounter [facility] 10-29-2022 Miscellaneous Notes Patient informed. Please call patient and let her know that desk monitor results look good. A few episodes of sinus tachycardia were noted which is just an elevated heart rate above 100 -- this is not concerning. No HR went above 125. No irregular rhythm was ever noted which is great news. Thank you, Sharmin Bauman APRN.PLATER HELPER documented in this encounter [facility] 10-18-2022 Miscellaneous Notes Patient phones requesting refills as follows: Requested Prescriptions Pending Prescriptions Disp Refills busPIRone (BUSPAR) 5 mg tablet [Pharmacy Med Name: buspirone 5 mg tablet] 60 tablet 3 Sig: Take 1 tablet by mouth twice daily as needed (anxiety, picking disorder). CORINNA-10/03/22 Labs-10/03/22 NOV-none med filled 06/19/22 Please review and advise. Saida Ruffin LPN documented in this encounter [facility] 10-09-2022 Miscellaneous Notes Spoke with pt gave information provided. Pt voices understanding. Call patient and let her know that ECHO results look fantastic! Cardiac function and structure are normal. No abnormalities at all. Thank you, Sharmin Bauman APRN.ERICA documented in this encounter [facility] 10-07-2022 Miscellaneous Notes Pt informed, verbalized understanding Shivani Ivy Please let Alex know that her labs look good, no concerns. Yohana Galarza APRN.PLATER HELPER documented in this encounter [facility] 10-03-2022 Note HNO ID: [id number] Author: Babs Callahan MD Service: Cardiovascular Surgery Author Type: Physician Type: Procedures Filed: 10/28/2022 2:08 PM Note Text: [facility] Name: ALEX OBREGON : 1980 Ordering provider: SHARMIN BAUMAN Indication: R53.83 Other fatigue Type of monitor: Event Monitor Enrollment dates: 10/12/2022 - 10/25/2022 [facility] 10-03-2022 Note HNO ID: [id number] Author: Sharmin Bauman APRN.CNP Service: ? Author Type: Nurse Practitioner Type: Progress Notes Filed: 10/03/2022 3:31 PM Note Text: Chief Complaint Patient presents with: Chest Pain: Chest pressure not pain pt states happens when she is trying to sleep , states wakes up soaking wet . HPI Alex Obregon is a 42 year old female who presents here today for Above Complaints. Alex is an established patient of Dr. Corrales, and myself. Concerns today... Chest pain --- Not pain, but chest pressure at night only. Symptoms started a few weeks ago. SOB with exertion going up and down stairs for months now. Waking up in the last few weeks in a puddle of sweat. Reports palpitations and feeling like heart is going too fast intermittently lasting a few minutes at a time. Reports extreme fatigue. Not sure if due to depression, mood, laziness, start of menopause or something more serious with her heart. Pt is concerned d/t history of cardiac issues. Pt reports in 2003 she had cardiac issues directly post-delivery of her first daughter. None of this is in our record. Pt is unsure of dx but states she believes it was toxemia that then flooded her lungs . Was following with honey processor Dr Galvin annually for a few years following this. Due to stable, pt has not seen honey processor x 13 years. BP is stable, no HTN regimen. No edema or swelling in legs. Past medical history, appointments, medications, allergies reviewed. Previous Medical History PAST MEDICAL HISTORY Diagnosis Date ADD (attention deficit disorder) diagnosed as child Elevated LDL cholesterol level 01/2014 Esophageal atresia congenital, fixed at Iron deficiency anemia after heavy menses Mood disorder (HCC) Nephrolithiasis Preeclampsia 1st , not with 2nd Umbilical hernia 2012 surgical fixed Vitamin D deficiency 01/2014 Previous Surgical History PAST SURGICAL HISTORY Procedure Laterality Date APPENDECTOMY 1982 G - TUBE, LOW PROFILE 1982 due to esophageal atresia REPAIR UMBILICAL HERNIA 2012 SCOPE ESPHGL ATRESIA RPR WDIV FISTULA 1982 TUBAL LIGATION, Family History FAMILY HISTORY Problem Relation Age of Onset other (non hodgkins lymphoma [Other]) Mother 58 Patient Allergies ALLERGIES No Known Allergies Current Medications Current Outpatient Medications on File Prior to Visit Medication Sig spironolactone (ALDACTONE) 50 mg tablet Take 1 tablet by mouth once daily. buPROPion XL (WELLBUTRIN XL) 300 mg 24 hr tablet TAKE 1 TABLET BY MOUTH ONCE DAILY meloxicam (MOBIC) 15 mg tablet Take 1 tablet by mouth once daily. With food. furosemide (LASIX) 20 mg tablet Take 1 tablet by mouth once daily. As needed for leg swelling FLUoxetine (PROZAC) 40 mg capsule Take 1 capsule by mouth twice daily. Cholecalciferol, Vitamin D3, 125 mcg (5,000 unit) cap Take 1 capsule by mouth once daily. busPIRone (BUSPAR) 5 mg tablet Take 1 tablet by mouth twice daily as needed (anxiety, picking disorder). fluticasone (FLONASE) 50 mcg/actuation nasal spray Use 2 Sprays in each nostril once daily. Rinse mouth after use. loratadine (CLARITIN) 10 mg tablet Take 1 tablet by mouth once daily. ferrous sulfate 325 mg (65 mg iron) tablet Take 1 tablet by mouth twice daily with meals. COMPRESSION HOSIERY KNEE LENGTH, AD, 18-30 MMHG as needed (leg swelling). Dx: varicose veins with edema omega-3 acid ethyl esters (LOVAZA) 1 gram capsule TAKE 4 CAPSULES EVERY DAY No current facility-administered medications on file prior to visit. Social History Social History Tobacco Use Smoking status: Never Smokeless tobacco: Never Substance Use Topics Alcohol use: Yes Comment: rarely Drug use: No REVIEW OF SYSTEMS: as above Reviewed relevant PMHx, PSHx, Social Hx, current medications and allergies. Review of Symptoms REVIEW OF SYSTEMS See HPI. All other systems are negative. EXAM: BP 122/86 (BP Site: Left Arm, BP Position: Sitting, BP Cuff Size: Large Adult) Pulse 92 Resp (!) 96 Wt 82.6 kg (182 lb 3.2 oz) LMP 04/09/2021 (Approximate) BMI 33.32 kg/m? General Appearance: Well appearing, alert, in no acute distress, well-hydrated, well nourished.. Skin: Skin color, texture, turgor normal, no suspicious rashes or lesions. Head: Normocephalic, no masses, lesions, tenderness or abnormalities. Neck: Supple, no adenopathy; thyroid symmetric, normal size, no bruits. Back:no pain to palpation of vertebrae, good flexion and extension, good range of motion, no muscle tenderness, reflexes are 2+ and symmetric, motor and sensory appear to be normal, negative SLR test, no evidence of scoliosis Lungs: Lungs clear to auscultation. No wheezing, rhonchi, rales.. Heart: RRR without murmur, gallop, or rubs. No ectopy. Abdomen: Normal abdominal exam, Abdomen soft, non-tender. Bowel sounds normal. No masses, organomegaly. Neurologic: G (more content not included)... [facility] 10-03-2022 History of Presen t illness Narrative Chief Complaint Patient presents with: Chest Pain: Chest pressure not pain pt states happens when she is trying to sleep , states wakes up soaking wet . HPI Alex Obregon is a 42 year old female who presents here today for Above Complaints. Alex is an established patient of Dr. Corrales, DO and myself. Concerns today... Chest pain --- Not pain, but chest pressure at night only. Symptoms started a few weeks ago. SOB with exertion going up and down stairs for months now. Waking up in the last few weeks in a puddle of sweat. Reports palpitations and feeling like heart is going too fast intermittently lasting a few minutes at a time. Reports extreme fatigue. Not sure if due to depression, mood, laziness, start of menopause or something more serious with her heart. Pt is concerned d/t history of cardiac issues. Pt reports in 2003 she had cardiac issues directly post-delivery of her first daughter. None of this is in our record. Pt is unsure of dx but states she believes it was toxemia that then flooded her lungs . Was following with honey processor Dr Galvin annually for a few years following this. Due to stable, pt has not seen honey processor x 13 years. BP is stable, no HTN regimen. No edema or swelling in legs. Past medical history, appointments, medications, allergies reviewed. Previous Medical History PAST MEDICAL HISTORY Diagnosis Date ADD (attention deficit disorder) diagnosed as child Elevated LDL cholesterol level 01/2014 Esophageal atresia congenital, fixed at Iron deficiency anemia after heavy menses Mood disorder (HCC) Nephrolithiasis Preeclampsia 1st , not with 2nd Umbilical hernia 2012 surgical fixed Vitamin D deficiency 01/2014 Previous Surgical History PAST SURGICAL HISTORY Procedure Laterality Date APPENDECTOMY 1982 G - TUBE, LOW PROFILE 1982 due to esophageal atresia REPAIR UMBILICAL HERNIA 2012 SCOPE ESPHGL ATRESIA RPR WDIV FISTULA 1982 TUBAL LIGATION, Family History FAMILY HISTORY Problem Relation Age of Onset other (non hodgkins lymphoma [Other]) Mother 58 Patient Allergies ALLERGIES No Known Allergies Current Medications Current Outpatient Medications on File Prior to Visit Medication Sig spironolactone (ALDACTONE) 50 mg tablet Take 1 tablet by mouth once daily. buPROPion XL (WELLBUTRIN XL) 300 mg 24 hr tablet TAKE 1 TABLET BY MOUTH ONCE DAILY meloxicam (MOBIC) 15 mg tablet Take 1 tablet by mouth once daily. With food. furosemide (LASIX) 20 mg tablet Take 1 tablet by mouth once daily. As needed for leg swelling FLUoxetine (PROZAC) 40 mg capsule Take 1 capsule by mouth twice daily. Cholecalciferol, Vitamin D3, 125 mcg (5,000 unit) cap Take 1 capsule by mouth once daily. busPIRone (BUSPAR) 5 mg tablet Take 1 tablet by mouth twice daily as needed (anxiety, picking disorder). fluticasone (FLONASE) 50 mcg/actuation nasal spray Use 2 Sprays in each nostril once daily. Rinse mouth after use. loratadine (CLARITIN) 10 mg tablet Take 1 tablet by mouth once daily. ferrous sulfate 325 mg (65 mg iron) tablet Take 1 tablet by mouth twice daily with meals. COMPRESSION HOSIERY KNEE LENGTH, AD, 18-30 MMHG as needed (leg swelling). Dx: varicose veins with edema omega-3 acid ethyl esters (LOVAZA) 1 gram capsule TAKE 4 CAPSULES EVERY DAY No current facility-administered medications on file prior to visit. Social History Social History Tobacco Use Smoking status: Never Smokeless tobacco: Never Substance Use Topics Alcohol use: Yes Comment: rarely Drug use: No REVIEW OF SYSTEMS: as above Reviewed relevant PMHx, PSHx, Social Hx, current medications and allergies. Review of Symptoms REVIEW OF SYSTEMS See HPI. All other systems are negative. EXAM: BP 122/86 (BP Site: Left Arm, BP Position: Sitting, BP Cuff Size: Large Adult) Pulse 92 Resp (!) 96 Wt 82.6 kg (182 lb 3.2 oz) LMP 04/09/2021 (Approximate) BMI 33.32 kg/m General Appearance: Well appearing, alert, in no acute distress, well-hydrated, well nourished.. Skin: Skin color, texture, turgor normal, no suspicious rashes or lesions. Head: Normocephalic, no masses, lesions, tenderness or abnormalities. Neck: Supple, no adenopathy; thyroid symmetric, normal size, no bruits. Back:no pain to palpation of vertebrae, good flexion and extension, good range of motion, no muscle tenderness, reflexes are 2+ and symmetric, motor and sensory appear to be normal, negative SLR test, no evidence of scoliosis Lungs: Lungs clear to auscultation. No wheezing, rhonchi, rales.. Heart: RRR without murmur, gallop, or rubs. No ectopy. Abdomen: Normal abdominal exam, Abdomen soft, non-tender. Bowel sounds normal. No masses, organomegaly. Neurologic: Gait normal. Reflexes normal and symmetric. Sensation grossly intact.. Health Maintenance List HEPATITIS B(1 of 3 - 3-dose series) Never done HEPATITIS C SCREENING Never done HIV SCREENING Never done HPV TESTING Never done PAP TESTING due on 02/08/2018 COVID-19 VACCINE(4 - Booster for Pfizer series) due on 10/16/2021 MAMMOGRAM Never done INFLUENZA(1) due on 01/24/2023 DTAP,TDAP,TD(2 - Td or Tdap) due on 12/11/2023 ASSESSMENT/PLAN: 1. Fatigue, unspecified type - ICD9: 780.79, ICD10: R53.83 (primary diagnosis) Rule out physiological cause based on lab work as below. If no abnormalities, may contribute fatigue to depression or start of menopause as differentials. - ECG B/O W INTERP (MED OFFICE) - ECHO - PERFLUTREN LIPID MICROSPHERES 1.1 MG/ML INJECTION IN NS 10 ML - SODIUM CHLORIDE 0.9 % (FLUSH) INJECTION SYRINGE - NM CARDIAC PERF STRESS/EXERCISE - OUTSIDE VENDOR CARDIAC OUTPATIENT EVENT RECORDER - COMP METABOLIC PANEL - CBC + DIFF - TSH BLD - T3 BLD - T4 FREE/FREE THYROX - IRON + TIBC - FERRITIN BLD - VITAMIN B12 BLOOD - VITAMIN D 25 HYDROXY - CONSULT TO CARDIOLOGY 2. Shortness of breath - ICD9: 786.05, ICD10: R06.02 With exertion. Rule out cardiac concerns by: EKG Stress test d/t symptoms worse with exertion ECHO for baseline. phototypesetting equipment monitor d/t episodes of palpitations. Pt would like to re-establish with cardiology. - ECG B/O W INTERP (MED OFFICE) -- NSR rate of 92. - ECHO - PERFLUTREN LIPID MICROSPHERES 1.1 MG/ML INJECTION IN NS 10 ML - SODIUM CHLORIDE 0.9 % (FLUSH) INJECTION SYRINGE - NM CARDIAC PERF STRESS/EXERCISE - OUTSIDE VENDOR CARDIAC OUTPATIENT EVENT RECORDER - CONSULT TO CARDIOLOGY 3. Chest pressure - ICD9: 786.59, ICD10: R07.89 See above. - ECG B/O W INTERP (MED OFFICE) - ECHO - PERFLUTREN LIPID MICROSPHERES 1.1 MG/ML INJECTION IN NS 10 ML - SODIUM CHLORIDE 0.9 % (FLUSH) INJECTION SYRINGE - NM CARDIAC PERF STRESS/EXERCISE - OUTSIDE VENDOR CARDIAC OUTPATIENT EVENT RECORDER - CONSULT TO CARDIOLOGY 4. Palpitations - ICD9: 785.1, ICD10: R00.2 See above. - ECG B/O W INTERP (MED OFFICE) - ECHO - PERFLUTREN LIPID MICROSPHERES 1.1 MG/ML INJECTION IN NS 10 ML - SODIUM CHLORIDE 0.9 % (FLUSH) INJECTION SYRINGE - NM CARDIAC PERF STRESS/EXERCISE - OUTSIDE VENDOR CARDIAC OUTPATIENT EVENT RECORDER RTO as needed. Prescription instructions reviewed with patient as applicable. Potential red flag symptoms discussed with the patient. Reviewed appropriate action plan to take if red flag symptoms occur. Patient agreeable to treatment plan. Sharmin Maharaj APRN.PLATER HELPER [address] [place] [address] documented in this encounter [facility] 09-18-2022 Note Patient Outreach (IN [facility]) ALEX OBREGON ([id number]) 1980 F Date Time Provider Department 09/18/22 THANH CORRALES During your visit today, we recorded the following information about you: Allergies As of Date: 09/18/2022 (No Known Allergies) Date Reviewed: 08/06/2022 Reviewed by: Nighat Hernandez LPN - Fully Assessed Visit Diagnosis:Encounter for screening mammogram for breast cancer [Z12.31] Order(s):[facility] SCREENING [[id number]] Order #: [id number] FUTURE Prescriptions as of 09/23/2022 - spironolactone (ALDACTONE) 50 mg tablet Take 1 tablet by mouth once daily. - buPROPion XL (WELLBUTRIN XL) 300 mg 24 hr tablet TAKE 1 TABLET BY MOUTH ONCE DAILY - meloxicam (MOBIC) 15 mg tablet Take 1 tablet by mouth once daily. With food. - furosemide (LASIX) 20 mg tablet Take 1 tablet by mouth once daily. As needed for leg swelling - FLUoxetine (PROZAC) 40 mg capsule Take 1 capsule by mouth twice daily. - Cholecalciferol, Vitamin D3, 125 mcg (5,000 unit) cap Take 1 capsule by mouth once daily. - busPIRone (BUSPAR) 5 mg tablet Take 1 tablet by mouth twice daily as needed (anxiety, picking disorder). - fluticasone (FLONASE) 50 mcg/actuation nasal spray Use 2 Sprays in each nostril once daily. Rinse mouth after use. - loratadine (CLARITIN) 10 mg tablet Take 1 tablet by mouth once daily. - ferrous sulfate 325 mg (65 mg iron) tablet Take 1 tablet by mouth twice daily with meals. - COMPRESSION HOSIERY KNEE LENGTH, AD, 18-30 MMHG as needed (leg swelling). Dx: varicose veins with edema - omega-3 acid ethyl esters (LOVAZA) 1 gram capsule TAKE 4 CAPSULES EVERY DAY Problem List As Of Date 09/18/2022 Noted Resolved Iron deficiency anemia [D50.9] 01/11/2014 Fatigue [R53.83] 01/11/2014 Chronic low back pain [M54.50, G89.29] 01/11/2014 Mood disorder (HCC) [F39] 01/11/2014 Bilateral edema of lower extremity [R60.0] 02/27/2015 Recurrent major depression in partial remission*02/27/2015 Urinary tract infection [N39.0] 03/18/2016 Nephrolithiasis [N20.0] 04/22/2016 Chronic midline low back pain without sciatica *09/17/2017 Routine physical examination [Z00.00] 01/08/2019 Perimenopausal symptoms [N95.1] 01/08/2019 Right hand pain [M79.641] 01/08/2019 Psoriasis [L40.9] 01/08/2019 Encounter Status:Closed by ASHLEY ORTEGA on 09/23/22 [facility] 08-08-2022 Miscellaneous Notes Called and left a detailed voicemail notifying patient of providers message. Hospital phone number was left in case patient had any questions. Zoe Dietz RN Please let her know that the biopsy report of her moles looks normal. Yohana Galarza APRN.CNP documented in this encounter [facility] 08-06-2022 History of Presen t illness Narrative CC: Alex Obregon is a 41 year old female who presents to the office for follow up HPI: Here for mole removal in the office, has had a mole on right side of neck that is getting caught on clothes and intermittently bleeds. Also has dark mole that is darkening and getting bigger on upper back. History of sunburns in the past. Hair present on chin, would like to try a medication to help prevent this. Not able to afford laser hair removal. PAST MEDICAL HISTORY Diagnosis Date ADD (attention deficit disorder) diagnosed as child Elevated LDL cholesterol level 01/2014 Esophageal atresia congenital, fixed at Iron deficiency anemia after heavy menses Mood disorder (HCC) Nephrolithiasis Preeclampsia 1st , not with 2nd Umbilical hernia 2012 surgical fixed Vitamin D deficiency 01/2014 PAST SURGICAL HISTORY Procedure Laterality Date APPENDECTOMY 1982 G - TUBE, LOW PROFILE 1982 due to esophageal atresia REPAIR UMBILICAL HERNIA 2012 SCOPE ESPHGL ATRESIA RPR WDIV FISTULA 1982 TUBAL LIGATION, Current Outpatient Medications Medication Sig buPROPion XL (WELLBUTRIN XL) 300 mg 24 hr tablet TAKE 1 TABLET BY MOUTH ONCE DAILY traZODone (DESYREL) 50 mg tablet TAKE 1 TABLET BY MOUTH DAILY AT BEDTIME meloxicam (MOBIC) 15 mg tablet Take 1 tablet by mouth once daily. With food. furosemide (LASIX) 20 mg tablet Take 1 tablet by mouth once daily. As needed for leg swelling FLUoxetine (PROZAC) 40 mg capsule Take 1 capsule by mouth twice daily. Cholecalciferol, Vitamin D3, 125 mcg (5,000 unit) cap Take 1 capsule by mouth once daily. busPIRone (BUSPAR) 5 mg tablet Take 1 tablet by mouth twice daily as needed (anxiety, picking disorder). fluticasone (FLONASE) 50 mcg/actuation nasal spray Use 2 Sprays in each nostril once daily. Rinse mouth after use. loratadine (CLARITIN) 10 mg tablet Take 1 tablet by mouth once daily. ferrous sulfate 325 mg (65 mg iron) tablet Take 1 tablet by mouth twice daily with meals. COMPRESSION HOSIERY KNEE LENGTH, AD, 18-30 MMHG as needed (leg swelling). Dx: varicose veins with edema omega-3 acid ethyl esters (LOVAZA) 1 gram capsule TAKE 4 CAPSULES EVERY DAY No current facility-administered medications for this visit. ALLERGIES No Known Allergies Social History Tobacco Use Smoking status: Never Smokeless tobacco: Never Substance Use Topics Alcohol use: Yes Comment: rarely Drug use: No ROS: See HPI PE: BP 110/60 Pulse 76 Temp (Src) 98.6 (Left Tympanic) Resp 16 Wt 176 lb (79.8kg) LMP 04/09/2021 Gen: A&OX3, NAD, non-toxic appearing HEENT: PERRLA, EOMs intact b/l, nares without drainage, pharynx without erythema, exudate, lesions, or drainage. Uvula midline. Neck: No LAD, no thyromegaly, no meningismus. CV: RRR, no murmur Lungs: CTA b/l, no wheezing Atypical hair growth on chin Skin: right proximal neck with atypical nevus at 6 x 4 mm size, left upper back at level of T4 there is an atypical bordered nevus with variegated color at 5 x 4 mm size No edema INFORMED CONSENT Alex Obregon Medical Record: [id number] Date: 08/06/2022 Procedure:atypical nevus removal x 2 as above The risks, benefits and anticipated outcomes of the procedure, the risks and benefits of the alternatives to the procedure and the roles and tasks of the personnel to be involved were discussed with the patient and the patient consents to the procedure and agrees to proceed. I verify that I personally obtained Lucindagilma Gilma Obregon's consent. Thanh Corrales DO [facility] Risks, benefits, and alternatives discussed. Informed consent obtained. The area was cleaned and prepped in a sterile fashion. 2 specimen(s) sent for pathology. Written and Verbal wound care instructions given. ASSESSMENT/PLAN: 1. Atypical nevus of neck - ICD9: 216.4, ICD10: D22.4 (primary diagnosis) Removed by shave biopsy, tolerated procedure well, no complications, she is aware of wound care at home. - SURGICAL PATHOLOGY 2. Atypical nevus of left upper back excluding scapular region - ICD9: 216.5, ICD10: D22.5 Removed by shave biopsy, tolerated procedure well, no complications, she is aware of wound care at home. - SURGICAL PATHOLOGY 3. Abnormal facial hair - ICD9: 704.1, ICD10: L67.8 Start on rx as below, follow up in office in 2-3 months - SPIRONOLACTONE 50 MG TABLET Thanh Corrales DO Return if no improvement. Follow up with Thanh Corrales DO. To ER if develops chest pain, shortness of breath Discussed risks, benefits, alternatives, and potential side effects of medications. Patient/Guardian expressed understanding and agreed with the plan. See patient instructions. Thanh Corrales DO [address] [place] [address] documented in this encounter [facility] 07-15-2022 Miscellaneous Notes Patient has been identified by name and date of : Yes Patient phones for refill(s): Requested Prescriptions Pending Prescriptions Disp Refills buPROPion XL (WELLBUTRIN XL) 300 mg 24 hr tablet [Pharmacy Med Name: bupropion HCl XL 300 mg 24 hr tablet, extended release] 90 tablet 11 Sig: TAKE 1 TABLET BY MOUTH ONCE DAILY traZODone (DESYREL) 50 mg tablet [Pharmacy Med Name: trazodone 50 mg tablet] 30 tablet 11 Sig: TAKE 1 TABLET BY MOUTH DAILY AT BEDTIME Date of last office visit in primary care: 06/19/22 Last 2 Encounter Wt Readings: Date: Wt: 06/19/2022 82.4 kg (181 lb 9.6 oz) 05/21/2021 85.3 kg (188 lb) Previous labs/tests for medication: Not applicable Please advise. Thank you. Nighat Hernandez LPN documented in this encounter [facility] 06-25-2022 Miscellaneous Notes Last office visit: 06/19/22 F/u scheduled: 08/06/22 Ngozi Turner Ma documented in this encounter [facility] 06-24-2022 Miscellaneous Notes Noted. Thank you, Sharmin Maharaj APRN.PLATER HELPER Patient notified of results and provider's instructions. Patient verbalizes understanding. Patient has been taking vitamin D. Patient will continue to take this. Patient has not been taking ferrous sulfate BID. Patient was waiting on labs to come back before she started taking medication. Patient will start take ferrous sulfate BID. Faith Jacobo RN 2nd attempt to reach pt. Left message to return call. Left message to return call. Please call patient and let her know that lab work looks great!! hgA1c -- DM marker is normal. Vitamin D level is normal -- OK to continue how she was taking vitamin D3 supplement, or if she was not taking at all, OK to discontinue. Iron level is very low. Need to restart iron supplement routinely. Please verify ferrous sulfate 325 mg BID as in medication list. Continue with lipid panel when fasting. Thank you, Sharmin Maharaj APRN.PLATER HELPER documented in this encounter [facility] 06-19-2022 History of Presen t illness Narrative Chief Complaint Patient presents with: Follow Up HPI Alex Obregon is a 41 year old female who presents here today for Above Complaints. Alex is an established patient of Dr. Gurpreet DO. She is a new patient to me today. Concerns today.. Routine annual physical exam. No concerns or complaints. Vit D deficiency -- 5000 units Vit D3 prescribed -- admits that she has not taken this for a few months. Will recheck labs. Mood--- Wellbutrin 300 mg, Prozac 40 mg BID, and buspar as needed BID. Has been out of buspar x 1 month, feels she doesn't see a difference when taking buspar versus not taking it. Would like a refill to have on hand but doesn't think she really needs it often. Feels anxiety is stable. Denies any SI/HI. Heavy menstrual cycles -- Was prescribed iron supplement in the past but has not taken for awhile . Had very heavy menstrual cycle last month and felt lightheaded and severe fatigue. Took iron supplement for the first time in awhile and symptoms resolved. Wants to check iron levels currently. Admits she is not on supplement routinely currently. Menstrual cycles are regular about every 30 days but just very heavy. Normally very heavy since she was young. Denies any clotting. Denies any pain with bleeding. Leg edema -- 20 mg Lasix prn. Taking about once per week currently. Swelling is well controlled and very minimal. Mobic --- due to arthritis in lower back. Asking if she can double dosage. Already on 15 mg daily. Feels back pain is worsening. Had steroid injection in back about 5 years ago that gave her great relief. Requesting to have this redone possibly or see ortho for opinion. Abnormal mole -- Mole to R side of posterior neck near hairline x whole life per pt. Recently bothersome to patient. Asking for removal. Raised and red in color. Denies mole changing in size or shape that she knows of. Due for HPV/PAP testing -- has OBGYN she follows with for this. Past medical history, appointments, medications, allergies reviewed. Previous Medical History PAST MEDICAL HISTORY Diagnosis Date ADD (attention deficit disorder) diagnosed as child Elevated LDL cholesterol level 01/2014 Esophageal atresia congenital, fixed at Iron deficiency anemia after heavy menses Mood disorder (HCC) Nephrolithiasis Preeclampsia 1st , not with 2nd Umbilical hernia 2012 surgical fixed Vitamin D deficiency 01/2014 Previous Surgical History PAST SURGICAL HISTORY Procedure Laterality Date APPENDECTOMY 1982 G - TUBE, LOW PROFILE 1982 due to esophageal atresia REPAIR UMBILICAL HERNIA 2012 SCOPE ESPHGL ATRESIA RPR WDIV FISTULA 1982 TUBAL LIGATION, Family History FAMILY HISTORY Problem Relation Age of Onset other (non hodgkins lymphoma [Other]) Mother 58 Patient Allergies ALLERGIES No Known Allergies Current Medications Current Outpatient Medications on File Prior to Visit Medication Sig meloxicam (MOBIC) 15 mg tablet Take 1 tablet by mouth once daily. With food. furosemide (LASIX) 20 mg tablet Take 1 tablet by mouth once daily. As needed for leg swelling buPROPion XL (WELLBUTRIN XL) 300 mg 24 hr tablet Take 1 tablet by mouth once daily. FLUoxetine (PROZAC) 40 mg capsule Take 1 capsule by mouth twice daily. Cholecalciferol, Vitamin D3, 125 mcg (5,000 unit) cap Take 1 capsule by mouth once daily. busPIRone (BUSPAR) 5 mg tablet Take 1 tablet by mouth twice daily as needed (anxiety, picking disorder). COMPRESSION HOSIERY KNEE LENGTH, AD, 18-30 MMHG as needed (leg swelling). Dx: varicose veins with edema fluticasone (FLONASE) 50 mcg/actuation nasal spray Use 2 Sprays in each nostril once daily. Rinse mouth after use. loratadine (CLARITIN) 10 mg tablet Take 1 tablet by mouth once daily. ferrous sulfate 325 mg (65 mg iron) tablet Take 1 tablet by mouth twice daily with meals. omega-3 acid ethyl esters (LOVAZA) 1 gram capsule TAKE 4 CAPSULES EVERY DAY No current facility-administered medications on file prior to visit. Social History Social History Tobacco Use Smoking status: Never Smokeless tobacco: Never Substance Use Topics Alcohol use: Yes Comment: rarely Drug use: No REVIEW OF SYSTEMS: as above Reviewed relevant PMHx, PSHx, Social Hx, current medications and allergies. Review of Symptoms REVIEW OF SYSTEMS See HPI. All other systems are negative. EXAM: BP 120/76 (BP Site: Left Arm, BP Position: Sitting, BP Cuff Size: Regular Adult) Pulse 64 Resp 18 Wt 82.4 kg (181 lb 9.6 oz) LMP 04/09/2021 (Approximate) BMI 33.22 kg/m General Appearance: Well appearing, alert, in no acute distress, well-hydrated, well nourished.. Skin: Skin color, texture, turgor normal, no suspicious rashes or lesions. Head: Normocephalic, no masses, lesions, tenderness or abnormalities. Nose/Sinuses: Nares normal, septum midline, mucosa normal, no drainage or sinus tenderness. Oropharynx: Lips, mucosa, and tongue normal, teeth and gums normal, oropharynx normal. Neck: Supple, no adenopathy; thyroid symmetric, normal size, no bruits. Back:no pain to palpation of vertebrae, good flexion and extension, good range of motion, no muscle tenderness, reflexes are 2+ and symmetric, motor and sensory appear to be normal, negative SLR test, no evidence of scoliosis Lungs: Lungs clear to auscultation. No wheezing, rhonchi, rales.. Heart: RRR without murmur, gallop, or rubs. No ectopy. Abdomen: Normal abdominal exam, Abdomen soft, non-tender. Bowel sounds normal. No masses, organomegaly. Extremities: No deformities, edema, skin discoloration, clubbing or cyanosis. Good capillary refill. . Musculoskeletal: No joint swelling, deformity, or tenderness. Peripheral Pulses: Normal. Neurologic: Gait normal. Reflexes normal and symmetric. Sensation grossly intact.. Lymph Nodes: No cervical lymphadenopathy, No supraclavicular lymphadenopathy, No axillary lymphadenopathy., and No inguinal lymphadenopathy.. Health Maintenance List HEPATITIS B(1 of 3 - 3-dose series) Never done HEPATITIS C SCREENING Never done HIV SCREENING Never done HPV TESTING Never done PAP TESTING due on 02/08/2018 COVID-19 VACCINE(4 - Booster for Pfizer series) due on 10/16/2021 INFLUENZA(1) due on 03/28/2022 DTAP,TDAP,TD(2 - Td or Tdap) due on 12/11/2023 ASSESSMENT/PLAN: 1. Other iron deficiency anemia - ICD9: 280.8, ICD10: D50.8 (primary diagnosis) Recheck iron levels. Likely needs to restart iron supplement. Discussed heavy menstrual cycles and possible oral contraceptive to decrease this. - IRON + TIBC - FERRITIN BLD 2. Chronic bilateral low back pain without sciatica - ICD9: 724.2, 338.29, ICD10: M54.50, G89.29 Continue with mobic daily. Refer to ortho per pt request. Chronic arthritis. - MELOXICAM 15 MG TABLET - CONSULT TO ORTHOPAEDICS 3. Bilateral leg edema - ICD9: 782.3, ICD10: R60.0 Stable. Well controlled on current regimen. Refilled. - FUROSEMIDE 20 MG TABLET 4. Mood disorder (HCC) - ICD9: 296.90, ICD10: F39 Stable. Well controlled on current regimen. Refills. - FLUOXETINE 40 MG CAPSULE - BUSPIRONE 5 MG TABLET 5. Vitamin D deficiency - ICD9: 268.9, ICD10: E55.9 Recheck labs Likely restart vit d3 supplement. - CHOLECALCIFEROL (VITAMIN D3) 125 MCG (5,000 UNIT) CAPSULE - VITAMIN D 25 HYDROXY 6. Routine physical examination - ICD9: V70.0, ICD10: Z00.00 - Counseled on healthy diet and regular exercise - Calcium intake with supplements or by diet of 1000 mg/day for under 50, 7705-2234 mg/day for 50+ - Depression screening tool completed and reviewed with patient. Based on score and interview, patient is already diagnosed with depression and recommended no further intervention at this time and continuing current plan of care. - Follow up for annual exam in one year - Follow-up with OBGYN for HPV/PAP testing. - COMP METABOLIC PANEL - CBC + DIFF - VITAMIN D 25 HYDROXY - HGB A1C - LIPID PANEL BASIC 7. Menorrhagia with regular cycle - ICD9: 626.2, ICD10: N92.0 See above. Discussed OCP if needed -- pt will monitor. Recheck iron levels. Likely needs to restart iron supplement. - IRON + TIBC - FERRITIN BLD RTO annually and as needed. Prescription instructions reviewed with patient as applicable. Potential red flag symptoms discussed with the patient. Reviewed appropriate action plan to take if red flag symptoms occur. Patient agreeable to treatment plan. Sharmin Maharaj APRN.ERICA [address] [place] [address] documented in this encounter [facility] 03-21-2022 Miscellaneous Notes Patient has been identified by name and date of : Yes Requested Prescriptions Pending Prescriptions Disp Refills furosemide (LASIX) 20 mg tablet 30 tablet 5 Sig: Take 1 tablet by mouth once daily. As needed for leg swelling RX INSTRUCTIONS: Patient aware RX will be sent to pharmacy. No need [facility] notify [facility]. [facility] 02-21-2022 Miscellaneous Notes The following approved medication requests have been transmitted electronically. Signed Prescriptions Disp Refills furosemide (LASIX) 20 mg tablet 30 tablet 5 Sig: Take 1 tablet by mouth once daily. As needed for leg swelling MOUSTAPHA: No Authorizing Provider: SHARMIN MAHARAJ buPROPion XL (WELLBUTRIN XL) 300 mg 24 hr tablet 90 tablet 0 Sig: Take 1 tablet by mouth once daily. MOUSTAPHA: No Authorizing Provider: SHARMIN MAHARAJ traZODone (DESYREL) 50 mg tablet 30 tablet 0 Sig: Take 1 tablet by mouth daily at bedtime. MOUSTAPHA: No Authorizing Provider: SHARMIN MAHARAJ APRN.ERICA documented in this encounter [facility] 02-11-2022 History of Presen t illness Narrative Sleep disturbances regularly. Difficulty falling asleep, can't turn off brain. Pt would like to trial trazodone prn at bedtime. RX sent. Pt aware. Discussed at 's appointment. The following approved medication requests have been transmitted electronically. Signed Prescriptions Disp Refills traZODone (DESYREL) 50 mg tablet 30 tablet 0 Sig: Take 1 tablet by mouth daily at bedtime. Sharmin Maharaj APRN.PLATER HELPER documented in this encounter [facility] 02-08-2022 Miscellaneous Notes Patient phones requesting refills as follows: Pending Prescriptions Disp Refills MELOXICAM 15 MG TABLET 90 tablet 3 Sig: Take 1 tablet by mouth once daily. With food. MOUSTAPHA: Yes FLUOXETINE 40 MG CAPSULE 180 capsule 3 Sig: Take 1 capsule by mouth twice daily. MOUSTAPHA: Yes CORINNA-05/21/21 Labs-08/08/21 NOV-none meds filled 01/24/21 Please review and advise. Saida Ruffin LPN documented in this encounter [facility] Bilateral leg edema Edema Mood disorder (HCC) Unspecified episodic mood disorder [facility] B[facility] leg edema Edema [facility] Diagnosis Chronic bilateral low back pain without sciatica [facility] Diagnosis Other iron deficiency anemia- Primary Chronic bilateral low back pain without sciatica Bilateral leg edema Edema Mood disorder (HCC) Unspecified episodic mood disorder Vitamin D deficiency Unspecified vitamin D deficiency Routine physical examination Routine general medical examination at a health care facility Menorrhagia with regular cycle Excessive or frequent menstruation [facility] Diagnosis Mood disorder (HCC) Unspecified episodic mood disorder [facility] Diagnosis Atypical nevus of neck- Primary Benign neoplasm of scalp and skin of neck Atypical nevus of left upper back excluding scapular region Benign neoplasm of skin of trunk, except scrotum Abnormal facial hair Hirsutism [facility] Diagnosis Encounter for screening mammogram for breast cancer [facility] Diagnosis Fatigue, unspecified type- Primary Shortness of breath Chest pressure Other chest pain Palpitations [facility] Diagnosis Mood disorder (HCC) Unspecified episodic mood disorder documented in this encounter [facility] note* Diagnosis Mucocele of lip- Primary Diseases of lips documented in this encounter [facility] note* Diagnosis Acute cystitis with hematuria- Primary Acute cystitis Acute left flank pain Abdominal pain, unspecified site Frequent urination Urinary frequency documented in this encounter [facility] note* Diagnosis Mucocele of lip- Primary Diseases of lips documented in this encounter [facility] note* Diagnosis Chronic bilateral low back pain without sciatica documented in this encounter [facility] note* Diagnosis Vitamin D deficiency Unspecified vitamin D deficiency Mood disorder (HCC) Unspecified episodic mood disorder documented in this encounter [facility] note* Diagnosis Encounter for screening mammogram for breast cancer documented in this encounter [facility] for referral (narrative)* Diagnostic Procedure Only (Routine) - Pending Review Specialty Diagnoses / Procedures Referred By [facility] Referred To Contact [facility] Diagnoses Encounter for screening mammogram for breast cancer Procedures ENEIDA SCREENING SCREENING MAMMOGRAPHY BI 2-VIEW BREAST INC CAD Thanh Corrales, DO [address] [place] [address] [facility] [address] [place] [address] Referral ID Status Reason Start Date Expiration Date Visits Requested Visits Authorized [id number] Pending Review Auto-Generat ed Referral 09/18/2022 10/18/2023 1 [facility] for referral (narrative)* Diagnostic Procedure Only (Routine) - Pending Review Specialty Diagnoses / Procedures Referred By Contac t Referred To Contact [facility] Diagnoses Encounter for screening mammogram for breast cancer Procedures ENEIDA SCREENING SCREENING MAMMOGRAPHY BI 2-VIEW BREAST INC CAD Thnah Corrales, DO [address] [place] [address] [facility] [address] [place] [address] Referral ID Status Reason Start Date Expiration Date Visits Requested Visits Authorized [id number] Pending Review Auto-Generat ed Referral 09/03/2023 10/02/2024 1 1 [facility] Advance Directives No Advanced Directives Records FoundDocuments on File Type Date Recorded 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 Advance Directive(s) 04/02/2016 2:19 PM Reason for Referral Specialty Diagnoses / Procedures Referred By Contac t Referred To Contact Orthopedics Diagnoses Chronic bilateral low back pain without sciatica Procedures CONSULT TO ORTHOPAEDICS OFFICE/OUTPATIENT [facility] 60-74 MINUTES Sharmin Maharaj, LAMINATION BUILDER.PLATER HELPER [address] [place] [address] Referral ID Status Reason Start Date Expiration Date Visits Requested Visits Authorized [id number] Authorized PCP Requested Referral 2 06/19/2023 1 1 Specialty Diagnoses / Procedures Referred By Contac t Referred To Contact Diagnoses Bilateral leg edema Sharmin Maharaj, LAMINATION BUILDER.PLATER HELPER [address] [place] [address] Referral ID Status Reason Start Date Expiration Date Visits Re quested Visits Authorized [id number] Closed 1 1 Specialty Diagnoses / Procedures Referred By Contac t Referred To Contact Cardiology Diagnoses Fatigue, unspecified type Shortness of breath Chest pressure Procedures CONSULT TO CARDIOLOGY OFFICE/OUTPATIENT [facility] 60-74 MINUTES Sharmin Bauman, LAMINATION BUILDER.PLATER HELPER [address] [place] [address] Referral ID Status Reason Start Date Expiration Date Visits Requested Visits Authorized [id number] Authorized PCP Requested Referral 10/03/2022 10/03/2023 1 1 Specialty Diagnoses / Procedures Referred By Contac t Referred To Contact [facility] Diagnoses Fatigue, unspecified type Shortness of breath Chest pressure Palpitations Procedures NM CARDIAC PERF STRESS/EXERCISE MYOCARDIAL SPECT MULTIPLE STUDIES Sharmin Bauman, LAMINATION BUILDER.PLATER HELPER [address] [place] [address] [facility] [address] [place] [address] Referral ID Status Reason Start Date Expiration Date Visits Requested Visits Authorized [id number] Pending Review Auto-Generat ed Referral 10/03/2022 11/02/2023 1 1 Specialty Diagnoses / Procedures Referred By Contac t Referred To Contact [facility] Diagnoses Fatigue, unspecified type Shortness of breath Chest pressure Palpitations Procedures ECHO ECHO TTHRC R-T 2D W/WOM-MODE COMPL SPEC&COLR D Sharmin Bauman, LAMINATION BUILDER.PLATER HELPER [address] [place] [address] [facility] [address] [place] [address] Referral ID Status Reason Start Date Expiration Date Visits Requested Visits Authorized [id number] Additional Clinical Info Needed Auto-Generat ed Referral 10/03/2022 10/03/2023 1 1 Specialty Diagnoses / Procedures Referred By Contac t Referred To Contact Ent - Otolaryngology Diagnoses Mucocele of lip Procedures CONSULT TO ENT OFFICE/OUTPATIENT NEW HIGH MDM 60-74 MINUTES Liset Fields PA-C [address] [place] [address] Referral ID Status Reason Start Date Expiration Date Visits Requested Visits Authorized [id number] Authorized PCP Requested Referral 03/26/2023 03/25/2024 1 1 Summary Purpose Family History No Family History Records Found Additional Source Comments Source Comments (unrecognize d section and content) In the event this informatio n is protected by the Federal Confidentiality of Alcohol and Drug Abuse Patient Records regulations: The Federal rules restrict any use of the information to criminally investigate or prosecute any alcohol or drug abuse patient.[facility] event this information is protected by the Federal Confidentiality of Alcohol and Drug Abuse Patient Records regulations: The Federal rules restrict any use of the information to criminally investigate or prosecute any alcohol or drug abuse patient.[facility] the event this information is protected by the Federal Confidentiality of Alcohol and Drug Abuse Patient Records regulations: The Federal rules restrict any use of the information to criminally investigate or prosecute any alcohol or drug abuse patient.[facility] the event this information is protected by the Federal Confidentiality of Alcohol and Drug Abuse Patient Records regulations: The Federal rules restrict any use of the information to criminally investigate or prosecute any alcohol or drug abuse patient.[facility] the event this information is protected by the Federal Confidentiality of Alcohol and Drug Abuse Patient Records regulations: The Federal rules restrict any use of the information to criminally investigate or prosecute any alcohol or drug abuse patient.[facility] the event this information is protected by the Federal Confidentiality of Alcohol and Drug Abuse Patient Records regulations: The Federal rules restrict any use of the information to criminally investigate or prosecute any alcohol or drug abuse patient.[facility] the event this information is protected by the Federal Confidentiality of Alcohol and Drug Abuse Patient Records regulations: The Federal rules restrict any use of the information to criminally investigate or prosecute any alcohol or drug abuse patient.[facility] the event this information is protected by the Federal Confidentiality of Alcohol and Drug Abuse Patient Records regulations: The Federal rules restrict any use of the information to criminally investigate or prosecute any alcohol or drug abuse patient.[facility] the event this information is protected by the Federal Confidentiality of Alcohol and Drug Abuse Patient Records regulations: The Federal rules restrict any use of the information to criminally investigate or prosecute any alcohol or drug abuse patient.[facility] the event this information is protected by the Federal Confidentiality of Alcohol and Drug Abuse Patient Records regulations: The Federal rules restrict any use of the information to criminally investigate or prosecute any alcohol or drug abuse patient.[facility] the event this information is protected by the Federal Confidentiality of Alcohol and Drug Abuse Patient Records regulations: The Federal rules restrict any use of the information to criminally investigate or prosecute any alcohol or drug abuse patient.[facility] the event this information is protected by the Federal Confidentiality of Alcohol and Drug Abuse Patient Records regulations: The Federal rules restrict any use of the information to criminally investigate or prosecute any alcohol or drug abuse patient.[facility] the event this information is protected by the Federal Confidentiality of Alcohol and Drug Abuse Patient Records regulations: The Federal rules restrict any use of the information to criminally investigate or prosecute any alcohol or drug abuse patient.[facility] the event this information is protected by the Federal Confidentiality of Alcohol and Drug Abuse Patient Records regulations: The Federal rules restrict any use of the information to criminally investigate or prosecute any alcohol or drug abuse patient.[facility] the event this information is protected by the Federal Confidentiality of Alcohol and Drug Abuse Patient Records regulations: The Federal rules restrict any use of the information to criminally investigate or prosecute any alcohol or drug abuse patient.[facility] the event this information is protected by the Federal Confidentiality of Alcohol and Drug Abuse Patient Records regulations: The Federal rules restrict any use of the information to criminally investigate or prosecute any alcohol or drug abuse patient.[facility] the event this information is protected by the Federal Confidentiality of Alcohol and Drug Abuse Patient Records regulations: The Federal rules restrict any use of the information to criminally investigate or prosecute any alcohol or drug abuse patient.[facility] the event this information is protected by the Federal Confidentiality of Alcohol and Drug Abuse Patient Records regulations: The Federal rules restrict any use of the information to criminally investigate or prosecute any alcohol or drug abuse patient.[facility] the event this information is protected by the Federal Confidentiality of Alcohol and Drug Abuse Patient Records regulations: The Federal rules restrict any use of the information to criminally investigate or prosecute any alcohol or drug abuse patient.[facility] the event this information is protected by the Federal Confidentiality of Alcohol and Drug Abuse Patient Records regulations: The Federal rules restrict any use of the information to criminally investigate or prosecute any alcohol or drug abuse patient.[facility] the event this information is protected by the Federal Confidentiality of Alcohol and Drug Abuse Patient Records regulations: The Federal rules restrict any use of the information to criminally investigate or prosecute any alcohol or drug abuse patient.[facility] the event this information is protected by the Federal Confidentiality of Alcohol and Drug Abuse Patient Records regulations: The Federal rules restrict any use of the information to criminally investigate or prosecute any alcohol or drug abuse patient.[facility]In the event this information is protected by the Federal Confidentiality of Alcohol and Drug Abuse Patient Records regulations: The Federal rules restrict any use of the information to criminally investigate or prosecute any alcohol or drug abuse patient.[facility]In the event this information is protected by the Federal Confidentiality of Alcohol and Drug Abuse Patient Records regulations: The Federal rules restrict any use of the information to criminally investigate or prosecute any alcohol or drug abuse patient.[facility] the event this information is protected by the Federal Confidentiality of Alcohol and Drug Abuse Patient Records regulations: The Federal rules restrict any use of the information to criminally investigate or prosecute any alcohol or drug abuse patient.[facility] the event this information is protected by the Federal Confidentiality of Alcohol and Drug Abuse Patient Records regulations: The Federal rules restrict any use of the information to criminally investigate or prosecute any alcohol or drug abuse patient.[facility] Reason for Visit (unrecogniz ed section and content) Reason Onset Date Comments Refill Request 06/05/2022 Reason Comments Follow Up Reason Comments Results Reason Comments Derm Problem Mole removal Reason Comments Chest Pain Chest pressure not p ain pt states happens when she is trying to sleep , states wakes up soaking wet . Reason Comments Mouth/Lip Problem bump on inside of li p x couple months Reason Comments urinary symptoms Reason Comments Patient Question Reason Comments Results Urine culture mixed. Care Teams (unrecognized sec tion and content) Cigarette Making Examiner Relationship Specialty Start Date End Date Thanh Corrales, DO [address] [place] [address] PCP - General Family Practice 01/11/14 Thanh Corrales, DO [address] [place] [address] Family Practice 01/11/14 Cigarette Making Examiner Relationship Specialty Start Date End Date Thanh Corrales DO [address] [place] [address] PCP - General Family Practice 01/11/14 Thanh Corrales, DO [address] [place] [address] Family Practice 01/11/14 Cigarette Making Examiner Relationship Specialty Start Date End Date Thanh Corrales, DO [address] [place] [address] PCP - General Family Medicine 01/11/14 Thanh Corrales, DO [address] [place] [address] Family Medicine 01/11/14 Cigarette Making Examiner Relationship Specialty Start Date End Date Thanh Corrales, DO [address] [place] [address] PCP - General Family Medicine 01/11/14 Thanh Corrales, DO [address] [place] [address] Family Medicine 01/11/14 Cigarette Making Examiner Relationship Specialty Start Date End Date Thanh Corrales, DO [address] [place] [address] PCP - General Family Medicine 01/11/14 Thanh Corrales, DO [address] [place] [address] Family Medicine 01/11/14 Cigarette Making Examiner Relationship Specialty Start Date End Date Thanh Corrales, DO [address] [place] [address] PCP - General Family Medicine 01/11/14 Thanh Corrales, DO [address] [place] [address] Family Medicine 01/11/14 Cigarette Making Examiner Relationship Specialty Start Date End Date Thanh Corrales, DO [address] [place] [address] PCP - General Family Medicine 01/11/14 Thanh Corrales, DO [address] [place] [address] Family Medicine 01/11/14 Cigarette Making Examiner Relationship Specialty Start Date End Date Thanh Corrales, DO [address] [place] [address] PCP - General Family Medicine 01/11/14 Thanh Corrales, DO [address] [place] [address] Family Medicine 01/11/14 Cigarette Making Examiner Relationship Specialty Start Date End Date Thanh Crorales, DO [address] [place] [address] PCP - General Family Medicine 01/11/14 Thanh Corrales, DO [address] [place] [address] Family Medicine 01/11/14 Cigarette Making Examiner Relationship Specialty Start Date End Date Thanh Corrales, DO [address] [place] [address] PCP - General Family Medicine 01/11/14 Thanh Corrales, DO [address] [place] [address] Family Medicine 01/11/14 Cigarette Making Examiner Relationship Specialty Start Date End Date Thanh Corrales, DO [address] [place] [address] PCP - General Family Medicine 01/11/14 Thanh Corrales, DO [address] [place] [address] Family Medicine 01/11/14 Cigarette Making Examiner Relationship Specialty Start Date End Date Thanh Corrales, DO [address] [place] [address] PCP - General Family Medicine 01/11/14 Thanh Corrales, DO [address] [place] [address] Family Medicine 01/11/14 Cigarette Making Examiner Relationship Specialty Start Date End Date Thanh Corrales, DO [address] [place] [address] PCP - General Family Medicine 01/11/14 Thanh Corrales DO [address] [place] [address] Family Medicine 01/11/14 Cigarette Making Examiner Relationship Specialty Start Date End Date Thanh Corrales DO [address] [place] [address] PCP - General Family Medicine 01/11/14 Thanh Corrales DO [address] [place] [address] Family Medicine 01/11/14 Cigarette Making Examiner Relationship Specialty Start Date End Date Thanh Corrales DO [address] [place] [address] PCP - General Family Medicine 01/11/14 Thanh Corrales DO [address] [place] [address] Family Medicine 01/11/14 Cigarette Making Examiner Relationship Specialty Start Date End Date Thanh Corrales DO [address] [place] [address] PCP - General Family Medicine 01/11/14 Thanh Corrales, [address] [place] [address] Family Medicine 01/11/14 Cigarette Making Examiner Relationship Specialty Start Date End Date Thanh Corrales DO [address] [place] [address] PCP - General Family Medicine 01/11/14 Thanh Corrales DO [address] [place] [address] Family Medicine 01/11/14 Cigarette Making Examiner Relationship Specialty Start Date End Date Thanh Corrales DO [address] [place] [address] PCP - General Family Medicine 01/11/14 Thanh Corrales DO [address] [place] [address] Family Medicine 01/11/14 Cigarette Making Examiner Relationship Specialty Start Date End Date Thanh Corrales DO [address] [place] [address] PCP - General Family Medicine 01/11/14 Thanh Corrales DO [address] [place] [address] Family Medicine 01/11/14 Cigarette Making Examiner Relationship Specialty Start Date End Date Thanh Corrales DO [address] [place] [address] PCP - General Family Medicine 01/11/14 Thanh Corrales DO [address] [place] [address] Family Medicine 01/11/14 INFORMATION SOURCE (unrecogn ized section and content) FOR RECORDS PERTAINING TO PATIENTS WHO ARE OR HAVE BEEN ENROLLED IN A CHEMICAL DEPENDENCY/SUBSTANCEABUSE PROGRAM, SOME INFORMATION MAY BE OMITTED. This clinical summary was aggregated from multiple sources. Caution should be exercised in using it in the provision of clinical care. This summary normalizes information from multiple sources, and as a consequence, information in this document may materially change the coding, format and clinical context of patient data. In addition, data may be omitted in some cases. CLINICAL DECISIONS SHOULD BE BASED ON THE PRIMARY CLINICAL RECORDS. [facility]. provides no warranty or guarantee of the accuracy or completeness of information in this document.
[2023-09-10 20:24] LABS: Mucous, Urine 0 SEEN /hpf (<or=2+)
[2023-09-10] MEDS: Ketorolac 15 MG/ML Vial IV (20:32)
[2023-09-10] MEDS: 0.9% Normal Saline (1000mL) 1,000 ML 999 ML IV (20:32)
[2023-09-10 20:35] LABS: Color, Urine Yellow (Yellow); Glucose, Dipstick Normal (Normal); Ketone-Dipstick Negative (Negative); Leukocyte Esterase-Dipstick 100 /ul (Negative); Nitrite-Dipstick Negative (Negative); Occult Blood-Urine 25 /ul (Negative); Protein-Dipstick Negative (Negative); Specific Gravity, Urine 1.015 (1.002-1.030); Urine Bilirubin Dipstick Negative (Negative); Urine Clarity Clear (Clear); Urine Urobilinogen Normal (Normal); Urine pH 6.5 (5.0 - 8.0)
[2023-09-10 20:36] LABS: Internal QC Validated? YES +Cl - CLEAR BKGD; Pregnancy, Urine Negative Negative
[2023-09-10 20:37] LABS: Bacteria 1+ /hpf (None Seen); Squamous Epithelial Cells - UA 0-5 SEEN /hpf (5-10); White Blood Cells 5-10 SEEN /hpf (0-5)
[2023-09-10 20:38] LABS: Absolute Neutrophil Count 15.6 X10^3/uL (2.0-7.7); Basophil# 0.06 X10^3/uL; Basophil% 0.3 % (0-1); Eosinophil# 0.61 X10^3/uL; Eosinophils% 3.2 % (0-5); Hematocrit 37.7 % (37-47); Hemoglobin 11.6 g/dL (12.0-15.0); Lymphocyte % 9.3 % (19-41); Mean Corp Hgb Conc 30.8 g/dL (32-36); Mean Corpuscular Hgb 25.3 pg (27.0-32.0); Mean Corpuscular Volume 82.3 fL (81-99); Monocyte# 1.17 X10^3/uL; NRBC Flagged by Analyzer 0 % (0-5); Neutrophil % 80.7 % (47-70); Platelet Count 441 K/mm3 (150-450); RBC Distribution Width CV 13.9 % (11.6-14.6); RBC Distribution Width SD 41.1 fl (35.1-43.9); Red Blood Count 4.58 M/mm3 (4.2-5.4); White Blood Count 19.3 K/mm3 (4.4-11.0)
[2023-09-10 20:39] LABS: Red Blood Cells-Urine 0-5 SEEN /hpf (0-5)
--- NOTE | 2023-09-10 20:42 | CT_ITS ---
EXAM: CT ABDOMEN AND PELVIS WITHOUT INTRAVENOUS CONTRAST CLINICAL INDICATION: Kidney Stone TECHNIQUE: Helically acquired images were obtained of the abdomen and pelvis without intravenous contrast. This CT exam was performed using one or more of the following dose reduction techniques: automated exposure control, adjustment of the mA and/or kV according to patient size, and/or use of iterative reconstruction technique. COMPARISON: No relevant prior studies available. FINDINGS: LOWER THORAX: Unremarkable. Lung bases are clear. No cardiomegaly. No significant pericardial effusion. ABDOMEN: LIVER: Unremarkable. Homogeneous. GALLBLADDER AND BILE DUCTS: Unremarkable. No calcified gallstones. No gallbladder distention or wall edema. No intra- or extrahepatic biliary ductal dilation. PANCREAS: Unremarkable. No focal cystic mass. SPLEEN: Unremarkable. Normal size without focal cystic or solid mass. ADRENALS: Unremarkable. No nodules. KIDNEYS AND URETERS: There is cortical scarring in both kidneys. No hydronephrosis. STOMACH AND BOWEL: Unremarkable. No stomach or bowel distention. No focal inflammatory change. PELVIS: APPENDIX: No evidence of acute appendicitis. BLADDER: Unremarkable. REPRODUCTIVE: There are low-density masses in both adnexa which may represent ovarian cysts. The right this measures 2.5 x 2.5 cm and on the left it measures 2.2 x 2.5 cm. ABDOMEN and PELVIS: INTRAPERITONEAL SPACE: Unremarkable. No ascites or other fluid collection. No free air. BONES/JOINTS: Unremarkable. No suspicious lytic or blastic abnormality. SOFT TISSUES: Unremarkable. No discrete abdominal or pelvic wall hernia. VASCULATURE: Unremarkable. Abdominal aorta is non-dilated. LYMPH NODES: Unremarkable. No enlarged lymph nodes. CT/Abdomen/Pelvis without Cont IMPRESSION: 1. Bilateral fluid density masses within the pelvis which may represent bilateral ovarian cysts. No other acute abnormalities are identified. 2. Cortical scarring in both kidneys. There is no ureteral stone or obstruction. Electronically Signed: Chirag Nolan MD at 21:05 EST ,
[2023-09-10 20:53] LABS: Anion Gap 8 (5-15); BUN 17 mg/dL (7-18); BUN/Creat Ratio 17.6 RATIO (10-20); Calcium,Total 9.2 mg/dL (8.5-10.1); Chloride 105 mmol/L (98-107); Creatinine, Serum 0.97 mg/dL (0.55-1.02); EST Glomerular Filtration Rate 68 mL/min (>60); Est Glom Filt Rate - Afr Amer 82 mL/min (>60); Estimated Creatinine Clearance 76.46 ml/min; Glucose 107 mg/dL (74-106); Potassium 3.7 mmol/L (3.5-5.1); Sodium Level 138 mmol/L (136-145)
--- NOTE | 2023-09-10 21:12 | US_ITS ---
EXAM: US PELVIS TRANSVAGINAL CLINICAL INDICATION: left sided pelvic pain TECHNIQUE: Transvaginal pelvic ultrasound was performed with grayscale and color Doppler imaging. Transvaginal imaging was used for better evaluation of the endometrium and adnexa. COMPARISON: No relevant prior studies available. FINDINGS: UTERUS/CERVIX: Uterus measures 10.0 x 5.3 x 7.3 cm. The endometrium measures 1 cm. Anteverted. There is no uterine mass. RIGHT OVARY: Right ovary measures 5.1 x 3.1 x 3.9 cm. There is a septated cyst in the right ovary that measures 3.0 x 2.5 x 2.7 cm. Blood flow is present in the right ovary. LEFT OVARY: The left ovary measures 5.3 x 3.0 x 4.6 cm. There are multiple masses in the left ovary. There is a complex cyst in the left ovary that measures 3.2 x 3.1 x 2.3 cm. There is a solid lesion within the left ovary that measures 1.9 x 2.1 x 1.8 cm. There is a cystic structure which has an echogenic focus within it that measures 3.3 x 2.7 x 2.4 cm. The echogenic nodule measures 5 x 6 x 7 mm. Blood flow is present in the left ovary. FREE FLUID: There is a small amount of free fluid in the cul-de-sac. BLADDER: Empty bladder which cannot be evaluated with this probe. US/Transvaginal Non- IMPRESSION: Multiple masses within the left ovary including a complex cyst, a solid mass and a cystic mass with an echogenic nodule. There is a septated cyst in the right ovary. There is no evidence of torsion. If indicated further evaluation with MRI may be beneficial. Electronically Signed: Chirag Nolan MD at 22:54 EST ,
[2023-09-10] MEDS: Metoclopramide 10 MG/2 ML Vial 5 MG IV (22:09)
[2023-09-10 23:10] VITALS: BP 139/79; PULSE 97; RESP 16; TEMP 36.6; O2SAT 98
== END 2023-09-10 23:12 | disposition home or self-care (01) ==
PROVIDERS: Emergency Provider Emergency Medicine; PCP Student in an Organized Health Care Education/Training Program; Visit Provider Emergency Medicine
DX: R10.30 Lower abdominal pain, unspecified (principal); D72.829 Elevated white blood cell count, unspecified; R19.00 Intra-abdominal and pelvic swelling, mass and lump, unspecified site; Z79.899 Other long term (current) drug therapy
CPT/HCPCS: 74176; 76830; 80048; 81001; 81025; 85025; 93976; 96374; 96375; 99283; J7030; A4216

== ENCOUNTER 2023-11-18 14:51 | Emergency (ER) | payer MEDICAID, SELFPAY ==
[2023-11-18 14:52] VITALS: BP 166/100; PULSE 74; RESP 18; TEMP 36.3; O2SAT 98; BMI 33.3
[2023-11-18 15:38] LABS: Absolute Lymphocyte Count 0.92 X10^3/uL (0.83-4.51); Absolute Neutrophil Count 12.4 X10^3/uL (2.0-7.7); Basophil# 0.06 X10^3/uL; Basophil% 0.4 % (0-1); Eosinophil# 0.33 X10^3/uL; Eosinophils% 2.3 % (0-5); Hemoglobin 11.1 g/dL (12.0-15.0); Lymphocyte # 0.92 X10^3/ul (0.83-4.51); Lymphocyte % 6.3 % (19-41); Mean Corp Hgb Conc 30.8 g/dL (32-36); Mean Corpuscular Hgb 24.6 pg (27.0-32.0); Mean Corpuscular Volume 79.6 fL (81-99); Mean Platelet Vol. 8.6 fl (6.2-12.0); Monocyte# 0.92 X10^3/uL; Monocyte% 6.3 % (0-10); NRBC Flagged by Analyzer 0 % (0-5); Neutrophil # 12.36 X10^3/uL (2.7-7.7); Neutrophil % 84.4 % (47-70); Platelet Count 505 K/mm3 (150-450); RBC Distribution Width CV 14.8 % (11.6-14.6); RBC Distribution Width SD 42.7 fl (35.1-43.9); Red Blood Count 4.52 M/mm3 (4.2-5.4); White Blood Count 14.6 K/mm3 (4.4-11.0)
--- NOTE | 2023-11-18 15:46 | ED.VIS.FEGU ---
HPI HPI - Female History of Present Illness Chief Complaint: Female C/O Detail of Chief Complaint: Abrupt onset of midline predominantly left adnexal discomfort, 2 hours ago Informant: patient Pain Pain: Positive for Pelvic Pain Onset: Today and Hours (2 hours ago) Context: Sudden Onset Timing: Continuous Quality: Positive for Cramping and Aching Location: - (Slightly past midline on the right and predominately left lower abdomen/inguinal area) Current Severity: Moderate Maximum Severity: Severe Worsened by: Movement and - (Walking and hitting bumps car ride to ER made it worse) Relieved by: - (Nothing) Bleeding Issue: Positive for Vaginal bleeding (Patient states she is having her menses and is regular including timing, amount of blood flow and color of blood) Onset: Days Context: Sudden Onset Timing: Continuous Current Severity: Heavy (Which is patient's norm) Maximum Severity: Heavy (With passage of clots which is patient's norm) Associated Symptoms Associated Symptoms: Positive for Dysuria and Urgency; Negative for Frequency, Hematuria, Missed Period or Irregular Period Last known menstrual period: Patient states she always has urinary symptoms. She does not have history Sexually: Positive for Active Control: BTL Narrative Narrative: Patient is a 43-year-old woman. She was working with her remodeling a older home they just purchased. She developed abrupt onset of left adnexal left lower quad abdominal pain that does radiate to the right side as well. This started 2 hours ago. She is menstruating presently. She states onset, flow and color of flow is normal for her. She has passed clots, which is normal for her. She does have a history of renal/ureteral stone. She states this pain is nowhere near as severe. She informing that she had ultrasounds performed that showed abnormalities. She had follow-up with OB at [facility]. According to the ultrasounds performed at outside facility there was no concern for cancer on the right side and that the left side had decreased significantly in size and reportedly is 3 cm in size. She does endorse frequency and dysuria, which is a chronic issue. She does not have a history of interstitial cystitis. She denies radiation of the pain to her shoulders or back. She does endorse increased pain with movement, walking and car ride. She denies fever, chills night sweats. She denies nausea, vomiting or diarrhea. Prior similar symptoms: No Recent Illness/Hospitalization: No PFSH PFSH Medical History Kidney stone Home Medications bupropion HCl 150 mg tablet,12 hr sustained-release 150 mg PO DAILY 01/15/17 [History Last Taken Unknown] fluoxetine 40 mg capsule 40 mg PO BID 01/15/17 [History Last Taken Unknown] hydrochlorothiazide 12.5 mg capsule 12.5 mg PO DAILY 01/15/17 [History Last Taken Unknown] loratadine 10 mg tablet 10 mg PO DAILY 01/15/17 [History Last Taken Unknown] losartan 25 mg tablet 25 mg PO DAILY 01/15/17 [History Last Taken Unknown] meloxicam 15 mg tablet 15 mg PO DAILY 01/15/17 [History Last Taken Unknown] potassium citrate 10 mEq (1,080 mg) tablet,extended release 10 meq PO TID 01/15/17 [History Last Taken Unknown] hydrocodone-acetaminophen 5-325mg 5mg-325mg 1 tab PO Q6H PRN PRN Pain 3 days #10 TABLETS 11/18/23 [Rx Last Taken Unknown] Allergy/AdvReac Type Severity Reaction Status Date / Time No Known Allergies Allergy Verified 11/18/23 14:52 Social History (Updated 11/18/23 @ 15:[address] Hilton Hernandez MD) household members: spouse Smoking Status: Never smoker substance use type: does not use ROS ROS ED Constitutional Constitutional ED: Denies chills, fever(s), subjective or sweats Cardiovascular Cardiovascular: Denies chest pain or palpitations Respiratory/Chest Respiratory/Chest: Denies cough or dyspnea Gastrointestinal Gastrointestinal: Reports abdominal pain; Denies constipation, diarrhea, melena, nausea or vomiting Genitourinary Genitourinary ED: Reports dysuria and urinary frequency; Denies hematuria Musculoskeletal Musculoskeletal: Denies arthralgias, myalgias or neck pain Integumentary Denies abscess, Abrasions or rash Neurologic Neurologic: Denies headache(s) Hematologic/Lymphatic Hematologic/Lymphatic: Denies easy bleeding or easy bruising EXAM Physical Exam Const Vital Signs: 11/18/23 14:52 11/18/23 16:52 11/18/23 18:00 Temperature 97.4 F L Temperature Source Temporal Pulse Rate 74 89 87 Respiratory Rate 18 20 H 17 Blood Pressure 166/100 H 156/92 H 168/90 H Blood Pressure Mean 122 113 116 Pulse Ox 98 96 97 Oxygen Delivery Method Room Air Room Air Room Air 11/18/23 20:00 Temperature Temperature Source Pulse Rate 103 H Respiratory Rate 16 Blood Pressure 163/78 H Blood Pressure Mean 106 Pulse Ox 99 Oxygen Delivery Method Room Air Positive well nourished and well developed General Appearance ED: well developed; Negative for pallor HEENT Reports moist mucous membranes HEENT Narrative: Head is atraumatic and normocephalic. Eyes PERRL and EOMs intact bilaterally General Eye ED: Negative for pale conjunctiva or scleral icterus Neck no lymphadenopathy, supple and no JVD Chest Wall inspection of chest normal Resp normal respiratory effort and clear to auscultation bilaterally Cardio regular rate, regular rhythm, S1 normal heart sound, no murmurs and no JVD GI soft to palpation and no masses; Negative for normal to inspection, nondistended, normoactive bowel sounds, non-tender or non-distended GI Narrative: Abdomen is tympanitic. Bowel sounds are diminished. There is referred pain to the left lower quadrant adnexal area. There is localized peritoneal findings in the left inguinal/left lower quadrant region. Auscultation: hypoactive bowel sounds Palpation: tender and guarding LLQ; Negative for rigid, hepatomegaly, splenomegaly or mass Narrative: There is no inguinal lymphadenopathy. There is no defect appreciated. Back/Spine no CVA tenderness Neuro oriented x3 and CN's II-XII intact bilaterally Sensorium / Orientation: alert Skin no rashes or lesions noted and no wounds General Skin Exam: Negative for jaundice or pallor MDM MDM MDM Narrative Medical decision making narrative: Differential diagnosis would include ectopic , ruptured ovarian cyst, ovarian torsion, diverticulitis, atypical presentation for ureteral calculus. Workup included CBC, BMP to assess renal function the event the CAT scan is needed, UA because of urinary symptoms and serum test. Suspect this is a gynecologic issue. Feel ultrasound would be ideal versus CAT scan. Transvaginal ultrasound performed August with following results: Multiple masses within the left ovary including a complex cyst, a solid mass and a cystic mass with an echogenic nodule. There is a septated cyst in the right ovary. There is no evidence of torsion. If indicated further evaluation with MRI may be beneficial. CT of the abdomen and pelvis with the following results on the same date as ultrasound: 1. Bilateral fluid density masses within the pelvis which may represent bilateral ovarian cysts. No other acute abnormalities are identified. 2. Cortical scarring in both kidneys. There is no ureteral stone or obstruction. Patient reports she was seen at [facility] by Dr. Christofer Georges and had ultrasound that revealed the mass on the left was only 3 cm and that there was no malignancy on the right. This was determined by ultrasound per patient. History & Record Review Additional record(s) reviewed:: Prior outpatient record, Prior ED visit and Prior labs Lab Data Attestation: I reviewed the patient's lab results. Lab results narrative: White count is elevated with slight shift. There is no bandemia. Patient does have microcytic anemia. Will need to compare to prior. Labs: Laboratory Results - last 24 hr 11/18/23 11/18/23 15:27 15:58 WBC 14.6 H RBC 4.52 Hgb 11.1 L Hct 36.0 L MCV 79.6 L MCH 24.6 L MCHC 30.8 L RDW Std Deviation 42.7 RDW Coeff of Pete 14.8 H Plt Count 505 H MPV 8.6 Immature Gran % (Auto) 0.300 Neut % (Auto) 84.4 H Lymph % (Auto) 6.3 L [place] % (Auto) 6.3 Eos % (Auto) 2.3 Baso % (Auto) 0.4 Absolute Neuts (auto) 12.4 H Absolute Lymphs (auto) 0.92 Nucleated RBC % 0 Sodium 137 Potassium 3.5 Chloride 107 Carbon Dioxide 26.0 Anion Gap 4 L BUN 13 Creatinine 1.13 H Estim Creat Clear Calc 65.24 Est GFR (MDRD) Af Amer 68 Est GFR (MDRD) Non-Af 56 L BUN/Creatinine Ratio 11.5 Glucose 130 H Calcium 8.7 Total Bilirubin 0.30 AST 10 L ALT 18 Alkaline Phosphatase 114 Total Protein 7.1 Albumin 3.5 Globulin 3.6 Albumin/Globulin Ratio 1.0 Serum , Qual NEGATIVE Urine Color Red Urine Clarity Cloudy Urine pH 7.0 Ur Specific [place] 1.010 Urine Protein 100 H Urine Glucose (UA) Normal Urine Ketones Negative Urine Occult Blood 250 H Urine Nitrite Positive H Urine Bilirubin Negative Urine Urobilinogen Normal Ur Leukocyte Esterase 100 H Urine RBC > 100 SEEN Urine WBC 0-5 SEEN Ur Squamous Epith Cells 0-5 SEEN Urine Bacteria 1+ Urine Mucus 0 SEEN Radiography Diagnostic Testing: Clinical Impression(s) from Imaging Studies Abdomen/Pelvis CT 11/18/23 17:05 IMPRESSION: Trace pelvic fluid. Left adnexal soft tissue fullness is noted with possible cystic lesion. Correlation with ultrasound is recommended. Electronically Signed: Teto StockDO at 17:47 EDT , Transvaginal US 11/18/23 17:58 IMPRESSION: Solid and cystic lesions at the left adnexa requiring further evaluation. Mild pelvic fluid and a questionable cystic structure or a loculated collection posterior to the uterus. Electronically Signed: Teto Stock DO at 20:08 EDT , Patient was informed of ultrasound results. She would like a restaurant culinary manager related with [facility]. Dr. Pandya is audit consultant for no doc. She was paged. Treatment and Re-Evaluation Narrative: Patient was formed CAT scan results. She still complains significant pain. She still has significant pain. 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 Patient was medicated with 15 mg of ketorolac. Time of addition 1800 Spoke with Liu nurse practitioner working with Dr. Pandya. Plan is for patient to call in the morning for outpatient follow-up and workup regarding his left ovarian mass/complex cyst. Patient was discharged to home with prescription for opiate analgesia and if patient is no longer on meloxicam will prescribe Toradol. Patient reports she had essentially total relief with Toradol. Discharge Plan Triage Chief Complaint: Female C/O Other Complaint: Abd Pain ED Provider: Hilton Hernandez Dx/Rx/DC Orders Clinical Impression: Complex cyst of left ovary, History of hypertension, Acute left lower quadrant pain, Asymptomatic bacteriuria, Hematuria Instructions: ED Ovarian Cyst Prescriptions: New hydrocodone-acetaminophen [hydrocodone-acetaminophen] 5-325 mg tablet 1 tab PO Q6H PRN PRN (Reason: Pain) 3 Days Qty: 10 0RF No Action fluoxetine 40 MG capsule 40 mg PO BID Patient Comments: TAKE 1 CAPSULE TWICE DAILY bupropion HCl 150 MG tablet sustained-release 12 hr 150 mg PO DAILY meloxicam 15 MG tablet 15 mg PO DAILY Patient Comments: potassium citrate 10 MEQ tablet extended release 10 meq PO TID Patient Comments: TAKE 1 TABLET BY MOUTH THREE TIMES DAILY losartan 25 MG tablet 25 mg PO DAILY Patient Comments: Take 1 tablet by mouth once daily. hydrochlorothiazide 12.5 MG capsule 12.5 mg PO DAILY loratadine 10 MG tablet 10 mg PO DAILY Patient Comments: Primary Care Provider: Thanh Vázquez Referrals: Mariela Pandya MD [Med Staff - Active Staff] - As soon as possible Thanh Vázquez DO [Primary Care Provider] - Activity Restrictions/Additional Instructions: 1. Contact Dr. Pandya office tomorrow morning at 8 AM. They will schedule for follow-up appointment and workup of your left ovarian mass/complex cyst Disposition Disposition: Home, Self Care
[2023-11-18 15:55] LABS: AST(SGOT) 10 U/L (15-37); Alanine Aminotransfer ALT/SGPT 18 U/L (13-56); Albumin, Serum 3.5 g/dL (3.2-5.0); Alkaline Phosphatase 114 U/L (45-117); Anion Gap 4 (5-15); BUN 13 mg/dL (7-18); BUN/Creat Ratio 11.5 RATIO (10-20); Calcium,Total 8.7 mg/dL (8.5-10.1); Chloride 107 mmol/L (98-107); Creatinine, Serum 1.13 mg/dL (0.55-1.02); EST Glomerular Filtration Rate 56 mL/min (>60); Est Glom Filt Rate - Afr Amer 68 mL/min (>60); Estimated Creatinine Clearance 65.24 ml/min; Globulin 3.6 g/dL (2.2-4.2); Glucose 130 mg/dL (74-106); Potassium 3.5 mmol/L (3.5-5.1); Protein, Total 7.1 g/dL (6.4-8.2); Sodium Level 137 mmol/L (136-145)
[2023-11-18 16:14] LABS: Mucous, Urine 0 SEEN /hpf (<or=2+)
[2023-11-18 16:23] LABS: Color, Urine Red (Yellow); Glucose, Dipstick Normal (Normal); Ketone-Dipstick Negative (Negative); Leukocyte Esterase-Dipstick 100 /ul (Negative); Nitrite-Dipstick Positive (Negative); Occult Blood-Urine 250 /ul (Negative); Protein-Dipstick 100 mg/dl (Negative); Urine Bilirubin Dipstick Negative (Negative); Urine Clarity Cloudy (Clear); Urine Urobilinogen Normal (Normal)
[2023-11-18 16:30] LABS: Bacteria 1+ /hpf (None Seen); Red Blood Cells-Urine > 100 SEEN /hpf (0-5); Squamous Epithelial Cells - UA 0-5 SEEN /hpf (5-10); White Blood Cells 0-5 SEEN /hpf (0-5)
[2023-11-18 16:32] LABS: Internal QC Validated? YES +Cl - CLEAR BKGD; Pregnancy, Serum, hCG Quali. NEGATIVE Negative
[2023-11-18 16:52] VITALS: BP 156/92; PULSE 89; RESP 20; O2SAT 96
--- NOTE | 2023-11-18 17:05 | CT_ITS ---
STUDY: CT ABDOMEN AND PELVIS WITHOUT CONTRAST REASON FOR EXAM: Female, 43 years old. Hematuria, left lower quadrant pain RADIATION DOSAGE (If Supplied By Facility): CTDIvol = ( 11.33 ) mGy, DLP = ( 608.80 ) mGycm TECHNIQUE: Transaxial images were obtained from the dome of the diaphragm to the symphysis pubis without oral contrast, and without intravenous contrast. Sagittal and coronal images were reconstructed. Individualized dose optimization techniques were used for this CT. COMPARISON: None. FINDINGS: The visualized lung bases are unremarkable. The visualized portions of the heart are within normal limits. Normal liver. Normal gallbladder and extrahepatic biliary system. Normal spleen. Normal pancreas. Normal bilateral adrenal glands. Scarring of the kidneys, right more than left. Normal visualized stomach. Normal small intestine. Diverticulosis of the colon. The appendix is visualized and appears normal. Normal abdominal aorta. Normal inferior vena cava. Normal retroperitoneum. Normal urinary bladder. Trace pelvic fluid. Left adnexal soft tissue fullness is noted with possible cystic lesion. Correlation with ultrasound is recommended. Normal abdominal wall. Normal osseous structures. CT/Abdomen/Pelvis without Cont IMPRESSION: Trace pelvic fluid. Left adnexal soft tissue fullness is noted with possible cystic lesion. Correlation with ultrasound is recommended. Electronically Signed: Teto Stock DO at 17:47 EDT ,
[2023-11-18] MEDS: Morphine 4 MG/ML Syringe IV ×2 (17:20→21:53)
--- NOTE | 2023-11-18 17:58 | US_ITS ---
INDICATION: Left adnexal mass, pain evaluate for torsion -- Need Doppler flow EXAMINATION: Ultrasound US Transvaginal Non-OB TECHNIQUE: Transvaginal (for optimal evaluation of the adnexa) pelvic ultrasound was performed. Grayscale, spectral waveform, and color flow Doppler evaluation of the adnexa. COMPARISON: FINDINGS: UTERUS: Anteverted. The uterus measures 9.1 x 5.7 x 4.5 cm. There is no uterine mass. The endometrial stripe measures 4 mm in AP diameter which is within normal limits. RIGHT OVARY: 2.7 x 1.8 x 1.8 cm. Non-enlarged, normal echogenicity. There is normal arterial inflow and venous outflow present in the right ovary. LEFT OVARY: 6.6 x 4.9 x 3.3 cm. There is an echogenic solid 3.4 x 3.7 x 3.1 cm lesion within adjacent 2.1 x 2.3 x 2.1 cm cystic lesion. There is normal arterial inflow and venous outflow present in the left ovary. FREE FLUID: Mild. There is a 2.3 x 2 x 1.1 cm cystic structure or loculated collection posterior to the uterus. US/Transvaginal Non- IMPRESSION: Solid and cystic lesions at the left adnexa requiring further evaluation. Mild pelvic fluid and a questionable cystic structure or a loculated collection posterior to the uterus. Electronically Signed: Teto Stock DO at 20:08 EDT ,
[2023-11-18 18:00] VITALS: BP 168/90; PULSE 87; RESP 17; O2SAT 97
[2023-11-18] MEDS: Ketorolac 15 MG/ML Vial IV (18:07)
[2023-11-18 20:00] VITALS: BP 163/78; PULSE 103; RESP 16; O2SAT 99
[2023-11-18 23:02] VITALS: BP 155/89; PULSE 94; RESP 16; O2SAT 98
[2023-11-18 23:03] VITALS: BP 155/99; PULSE 94; RESP 16; TEMP 36.6; O2SAT 99
== END 2023-11-18 23:20 | disposition home or self-care (01) ==
PROVIDERS: Emergency Provider Emergency Medicine; PCP Student in an Organized Health Care Education/Training Program; Visit Provider Emergency Medicine
DX: N83.202 Unspecified ovarian cyst, left side (principal); R82.71 Bacteriuria; R31.9 Hematuria, unspecified; Z79.899 Other long term (current) drug therapy
CPT/HCPCS: 74176; 76830; 80053; 81001; 84703; 85025; 93976; 96374; 96375; 96376; 99285; A4216

== ENCOUNTER 2024-05-12 11:34 | Emergency (ER) | payer MEDICAID, SELFPAY ==
[2024-05-12 11:35] VITALS: BP 132/79; PULSE 99; RESP 15; TEMP 36.7; O2SAT 97; BMI 31.4
--- NOTE | 2024-05-12 11:48 | EX.ED.DYSGE1 ---
HPI History of Present Illness Chief Complaint: Abd Pain Detail of Chief Complaint: Right-sided abdominal pain that awoke patient from sleep. Informant: patient Onset/Context/Timing Onset: Today and Hours Context: Sudden Onset Timing: Continuous Quality: Pain entire right lower quadrant with radiation to the right flank area Location: Right side abdomen and flank Current Severity: Mild Maximum Severity: Moderate Worsened by: Nothing specific Relieved by: Nothing Associated Symptoms Associated Symptoms: No nausea, vomiting diarrhea or urologic symptoms Narrative Narrative: Patient is a 43-year-old woman with history ovarian cyst. She had a pelvic ultrasound performed yesterday. The cyst is larger than prior. This is a follow-up study. She does have history of renal/ureterolithiasis. She denies fever, chills night sweats. She denies dysuria, frequency, urgency hematuria. There is no history of direct or indirect trauma. Patient denies anorexia. She is status post bilateral tubal ligation approximately 12 years ago. Last menses was May 02. Patient denies any respiratory symptoms. Patient denies rash. Patient denies vaginal bleeding. She does have history ovarian cysts and fibroids. Prior similar symptoms: Yes Recent Illness/Hospitalization: No PFSH PFS Medical History (Updated 05/12/24 @ 13:[address] Hilton Hernandez MD) Uterine fibroid Ovarian cyst Kidney stone Home Medications ?Medication ?Instructions ?Recorded ?Last Taken ?Type bupropion HCl 150 mg tablet,12 hr 150 mg PO DAILY 01/15/17 Unknown History sustained-release fluoxetine 40 mg capsule 40 mg PO BID 01/15/17 Unknown History loratadine 10 mg tablet 10 mg PO DAILY 01/15/17 Unknown History meloxicam 15 mg tablet 15 mg PO DAILY 01/15/17 Unknown History spironolactone 50 mg tablet 50 mg PO DAILY 11/18/23 Unknown History ibuprofen 800 mg tablet 800 mg PO Q8H PRN PRN pain 05/12/24 Unknown History Allergy/AdvReac Type Severity Reaction Status Date / Time No Known Allergies Allergy Verified 05/12/24 11:38 Social History (Updated 05/12/24 @ 12:14 by Paige Mcelroy) household members: spouse housing: house Smoking Status: Never smoker substance use type: does not use ROS ROS ED Constitutional Constitutional ED: Denies chills, fever(s), subjective, sweats or weight loss Eyes Eyes: Denies blurry vision or change in vision Cardiovascular Cardiovascular: Denies chest pain or palpitations Respiratory/Chest Respiratory/Chest: Denies cough, dyspnea or dyspnea on exertion Gastrointestinal Gastrointestinal: Reports abdominal pain and other Details: Patient not had a bowel movement in approximately 2 days. She is on iron tablets. ; Denies constipation, diarrhea, nausea or vomiting Genitourinary Genitourinary ED: Denies dysuria, hematuria or urinary frequency Musculoskeletal Musculoskeletal: Reports other Details: Right flank discomfort. ; Denies arthralgias, back pain, myalgias or neck pain Integumentary Denies rash Neurologic Neurologic: Denies paresthesias Hematologic/Lymphatic Hematologic/Lymphatic: Reports systems reviewed and no addt'l complaints, except as documented EXAM Physical Exam Const Vital Signs: 05/12/24 11:35 Temperature 98.1 F Temperature Source Temporal Pulse Rate 99 Respiratory Rate 15 Blood Pressure 132/79 H Blood Pressure Mean 96 Pulse Ox 97 Oxygen Delivery Method Room Air Positive well nourished and well developed Constitutional Narrative: Patient was sitting up on the phone talking to someone and I entered the room. Patient did complain of pain when I lowered her bed. General Appearance ED: well developed, NAD and pallor HEENT Reports moist mucous membranes HEENT Narrative: Head is atraumatic normocephalic. Eyes PERRL and EOMs intact bilaterally General Eye ED: Negative for pale conjunctiva or scleral icterus Neck no lymphadenopathy, supple and no JVD Chest Wall inspection of chest normal and palpation of chest normal Resp normal respiratory effort and clear to auscultation bilaterally Cardio regular rate, regular rhythm, S1 normal heart sound, S2 normal heart sound and no murmurs GI normal to inspection, nondistended, normoactive bowel sounds and non-distended; Negative for non-tender Palpation: soft and tender LLQ and RLQ Back/Spine no CVA tenderness Extremity normal to inspection General Extremety ED: Negative for edema or tenderness General Extremity: Negative for edema Neuro oriented x3 and CN's II-XII intact bilaterally Sensorium / Orientation: alert Psych mental status grossly normal Skin no rashes or lesions noted, no wounds and skin turgor normal General Skin Exam: elasticity normal and pallor; Negative for jaundice MDM MDM MDM Narrative Medical decision making narrative: Differential diagnosis would be abdominal pain unknown etiology, ruptured ovarian cyst, doubt ovarian torsion, obstructing ureteral stone, doubt appendicitis since this started abruptly. To evaluate her symptoms and findings of CBC, electrolyte panel and UA was obtained. test was obtained as well since ectopic would need to be considered if she is . Patient informed of the results from the ultrasound performed yesterday since it has not been officially read. Lab Data Labs: Laboratory Results - last 24 hr 05/12/24 11:55 WBC 15.7 H RBC 4.50 Hgb 9.7 L Hct 32.4 L MCV 72.0 L MCH 21.6 L MCHC 29.9 L RDW Std Deviation 43.5 RDW Coeff of Pete 17.1 H Plt Count 631 H MPV 8.4 Sodium 135 L Potassium 4.0 Chloride 104 Carbon Dioxide 26.0 Anion Gap 5 BUN 10 Creatinine 0.96 Estim Creat Clear Calc 74.59 Est GFR (MDRD) Af Amer 82 Est GFR (MDRD) Non-Af 68 BUN/Creatinine Ratio 10.4 Glucose 120 H Calcium 9.0 Serum , Qual NEGATIVE Urine Color Yellow Urine Clarity Sl. Cloudy Urine pH 6.0 Ur Specific [place] 1.010 Urine Protein 15 H Urine Glucose (UA) Normal Urine Ketones Negative Urine Occult Blood 50 H Urine Nitrite Negative Urine Bilirubin Negative Urine Urobilinogen Normal Ur Leukocyte Esterase 100 H Urine RBC 0 SEEN Urine WBC 5-10 SEEN Ur Squamous Epith Cells 10-25 SEEN Urine Bacteria 1+ Urine Mucus 0 SEEN Treatment and Re-Evaluation :: Patient was reassessed at 1325. She is lying comfortably in the bed. She was made aware of her results. She is aware that she has chronic elevated white count. Her pain did improve. Since she has no peritoneal findings and ultrasound yesterday and I do not believe that she has a torsion there is no indication at this time for a repeat emergent ultrasound of the pelvis. Treatment is NSAIDs. 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 Discharge Plan Triage Chief Complaint: Abd Pain ED Provider: Hilton Hernandez Dx/Rx/DC Orders Clinical Impression: Right lower quadrant abdominal pain, Status post hysterectomy, Hx of ovarian cyst Instructions: ED Abdominal Pain Unkn Cause Fem Prescriptions: No Action fluoxetine 40 MG capsule 40 mg PO BID Patient Comments: TAKE 1 CAPSULE TWICE DAILY bupropion HCl 150 MG tablet sustained-release 12 hr 150 mg PO DAILY meloxicam 15 MG tablet 15 mg PO DAILY Patient Comments: loratadine 10 MG tablet 10 mg PO DAILY Patient Comments: spironolactone 50 mg tablet 50 mg PO DAILY ibuprofen 800 mg tablet 800 mg PO Q8H PRN PRN (Reason: pain) Primary Care Provider: Thanh Vázquez Referrals: Thanh Vázquez DO [Primary Care Provider] - 3-5 Days if not improving Print Language: Romansh Disposition Disposition: Home, Self Care
[2024-05-12] MEDS: Ketorolac 15 MG/ML Vial IV (11:55)
[2024-05-12 12:12] LABS: Mucous, Urine 0 SEEN /hpf (<or=2+); Red Blood Cells-Urine 0 SEEN /hpf (0-5)
[2024-05-12 12:15] LABS: Hematocrit 32.4 % (37-47); Hemoglobin 9.7 g/dL (12.0-15.0); Mean Corp Hgb Conc 29.9 g/dL (32-36); Mean Corpuscular Hgb 21.6 pg (27.0-32.0); Mean Platelet Vol. 8.4 fl (6.2-12.0); Platelet Count 631 K/mm3 (150-450); RBC Distribution Width CV 17.1 % (11.6-14.6); RBC Distribution Width SD 43.5 fl (35.1-43.9); White Blood Count 15.7 K/mm3 (4.4-11.0)
[2024-05-12 12:22] LABS: Color, Urine Yellow (Yellow); Glucose, Dipstick Normal (Normal); Ketone-Dipstick Negative (Negative); Leukocyte Esterase-Dipstick 100 /ul (Negative); Nitrite-Dipstick Negative (Negative); Occult Blood-Urine 50 /ul (Negative); Protein-Dipstick 15 mg/dl (Negative); Urine Bilirubin Dipstick Negative (Negative); Urine Clarity Sl. Cloudy (Clear); Urine Urobilinogen Normal (Normal)
[2024-05-12 12:26] LABS: Internal QC Validated? YES +Cl - CLEAR BKGD; Pregnancy, Serum, hCG Quali. NEGATIVE Negative
[2024-05-12 12:28] LABS: Anion Gap 5 (5-15); BUN 10 mg/dL (7-18); BUN/Creat Ratio 10.4 RATIO (10-20); Chloride 104 mmol/L (98-107); Creatinine, Serum 0.96 mg/dL (0.55-1.02); EST Glomerular Filtration Rate 68 mL/min (>60); Est Glom Filt Rate - Afr Amer 82 mL/min (>60); Estimated Creatinine Clearance 74.59 ml/min; Glucose 120 mg/dL (74-106); Sodium Level 135 mmol/L (136-145)
[2024-05-12 12:29] LABS: Bacteria 1+ /hpf (None Seen); Squamous Epithelial Cells - UA 10-25 SEEN /hpf (5-10); White Blood Cells 5-10 SEEN /hpf (0-5)
[2024-05-12 14:01] VITALS: BP 139/85; PULSE 108; RESP 21; TEMP 36.4; O2SAT 93
== END 2024-05-12 14:02 | disposition home or self-care (01) ==
PROVIDERS: Emergency Provider Emergency Medicine; PCP Student in an Organized Health Care Education/Training Program; Visit Provider Emergency Medicine
DX: R10.31 Right lower quadrant pain (principal); N83.209 Unspecified ovarian cyst, unspecified side; D72.829 Elevated white blood cell count, unspecified; Z90.710 Acquired absence of both cervix and uterus; Z87.442 Personal history of urinary calculi
CPT/HCPCS: 80048; 81001; 84703; 85027; 96374; 99285; A4216